=== PATIENT | male | born 1955 | race Caucasian/White ===

== ENCOUNTER 2023-01-04 11:07 | Outpatient (OUT) | payer OTHER, SELFPAY | END 2023-01-04 11:08 | disposition home or self-care (01) | LOC: PST 11:08 | PROVIDERS: PCP Family Medicine; Visit Provider Ophthalmology | DX: Z01.818 Encounter for other preprocedural examination (principal); H25.11 Age-related nuclear cataract, right eye ==

== ENCOUNTER 2023-01-11 07:30 | Day surgery (SDC) | payer OTHER, SELFPAY ==
--- NOTE | 2023-01-11 | OP_ITS ---
OPERATION DATE: ??01/11/2023 SURGEON:? Derek Chester M.D. PREOPERATIVE DIAGNOSIS:? Nuclear sclerotic cataract right eye. POSTOPERATIVE DIAGNOSIS:? Nuclear sclerotic cataract right eye. PROCEDURE NAME:? Cataract extraction with intraocular lens placement for the right eye. ANESTHESIA:? Topical. ESTIMATED BLOOD LOSS:? Zero. COMPLICATIONS:? None. PROCEDURE:? The patient was brought to the Operating Room in supine position.? After proper identification, the right eye was prepped and draped in a sterile ophthalmic fashion.? A paracentesis created at the 11 o'clock position.? Approximately 1 cc of unpreserved Xylocaine was injected into the anterior chamber followed by Amvisc Plus.? Using a 2.6 mm Keratome blade, a clear corneal incision was created at the 9 o'clock limbus.? A cystotome was then used to begin a curvilinear capsulorrhexis that was continued for 360 degrees with the Utrata forceps.? BSS on a 26 gauge cannula was injected beneath the anterior capsule to hydrodissect as well as hydrodelineate the lens.? After ensuring mobility, phacoemulsification was performed in a [id number]-type fashion.? After all nuclear material had been removed from the eye, IA was introduced and all residual cortical material was cleaned up.? Additional Amvisc Plus was injected into the posterior bag and a lens model MX60, 15.0 diopters was injected and dialed into position.? After ensuring centration, IA was reintroduced into the anterior chamber and all residual Amvisc Plus was removed from the eye.? BSS on a 30 gauge cannula was injected into the stroma of both the clear corneal incision as well as paracentesis to hydrate the wounds.? Additional BSS was injected into the anterior chamber to pressurize the eye at approximately 20 to 22 mmHg by finger tension.? 0.1 cc of antibiotic was injected into the anterior chamber and Weck-Lizzeth sponges were used to check the wounds to be watertight.? One drop of apraclonidine and one drop of prednisolone acetate placed into the eye and a shield was placed over top. The patient was sent to the postoperative area in satisfactory condition to follow up the following day for postoperative care. ALYSSA
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
[2023-01-11 07:39] VITALS: BP 125/79; PULSE 68; RESP 16; TEMP 36.4; O2SAT 96
[2023-01-11] MEDS: CYCLOPENTOLATE HCL 1% OP SOL 40 DROP/2 ML BOTTLE OP ×4 (07:43→08:10)
[2023-01-11] MEDS: PHENYLEPHRINE HCL 2.5% OP SOL 40 DROP/2 ML BOTTLE OP ×4 (07:44→08:09)
[2023-01-11] MEDS: TROPICAMIDE 1% OP SOL 300 DROP/15 ML BOTTLE OP ×4 (07:44→08:09)
[2023-01-11] MEDS: BESIFLOXACIN HCL 100 DROP DROPS.SUSP OP ×4 (07:45→08:10)
[2023-01-11] MEDS: DIAZEPAM 5 MG TABLET PO (07:49)
[2023-01-11] MEDS: PROPARACAINE HCL 0.5% 300 DROP/15 ML BOTTLE EYE-RIGHT (09:10)
[2023-01-11] MEDS: LIDOCAINE 2% JELLY 10 ML UR (09:10)
[2023-01-11] MEDS: BETADINE POVIDONE-IODINE 5% OP SOL 30 ML BOTTLE OP (09:10)
[2023-01-11] MEDS: HYALURONATE SODIUM 16 MG/ML SYRINGE EYE-RIGHT (09:20)
[2023-01-11] MEDS: TETRACAINE HCL 0.5% OP SOL 80 DROP/4 ML BOTTLE OP (09:20)
[2023-01-11] MEDS: LIDOCAINE HCL 1% PF 20 MG/2 ML VIAL 1 ML INJ (09:20)
[2023-01-11 09:23] VITALS: BP 123/81; PULSE 51; RESP 18; O2SAT 97
[2023-01-11] MEDS: PHENYLEPHRINE/KETOROLAC 1-0.3% ML VIAL 4 ML IRR (09:24)
[2023-01-11] MEDS: CEFUROXIME SODIUM 750 MG, 0.9 % SODIUM CHLORIDE 16.3 ML OP (09:34)
[2023-01-11 09:36] VITALS: BP 129/78; PULSE 46; RESP 16; O2SAT 99
[2023-01-11] MEDS: PREDNISOLONE ACETATE OP 1% SUSP 100 DROPS/5 ML 1 DROP OP (09:36)
[2023-01-11] MEDS: APRACLONIDINE HCL 100 DROP/5 ML BOTTLE OP (09:36)
== END 2023-01-11 09:44 | disposition home or self-care (01) ==
PROVIDERS: PCP Family Medicine; Visit Provider Ophthalmology
PROC: (CPT 66984; principal; 2023-01-11 09:00)
DX: H25.11 Age-related nuclear cataract, right eye (principal); I10 Essential (primary) hypertension; F17.210 Nicotine dependence, cigarettes, uncomplicated; Z79.899 Other long term (current) drug therapy
CPT/HCPCS: 66984; V2630

== ENCOUNTER 2023-09-14 08:11 | Outpatient (OUT) | payer MEDICARE, OTHER, SELFPAY ==
[2023-09-14 08:48] LABS: Basophils Absolute Auto 0.1 10^3/uL (0.0-0.1); Basophils Percent Auto 1.2 % (0.2-2.0); Eosinophils Absolute Auto 0.3 10^3/uL (0.0-0.7); Eosinophils Percent Auto 5.5 % (0.9-7.0); Hematocrit 44.3 % (42.0-54.0); Immature Granulocytes Abs Auto 0.06 10^3/uL (0.00-0.03); Immature Granulocytes Pct Auto 1.2 % (0.0-0.5); Lymphocytes Absolute Auto 0.9 10^3/uL (1.2-3.8); Lymphocytes Percent Auto 17.5 % (20.5-60.0); Mean Corpuscular HGB Conc 33.9 g/dL (29.9-35.2); Mean Corpuscular Hemoglobin 28.4 pg (25.9-34.0); Mean Corpuscular Volume 83.9 fL (80.0-94.0); Mean Platelet Volume 10.4 fL (9.5-13.5); Monocytes Absolute Auto 0.5 10^3/uL (0.3-0.8); Monocytes Percent Auto 9.1 % (1.7-12.0); Neutrophils Absolute Auto 3.2 10^3/uL (1.4-6.5); Neutrophils Percent Auto 65.5 % (43.0-75.0); Platelet Count 201 10^3/uL (150-450); Red Blood Count 5.28 10^6/uL (4.70-6.10); Red Cell Distribution Width 12.8 % (11.0-15.0); White Blood Count 4.9 10^3/uL (4.0-11.0)
[2023-09-14 08:54] LABS: Estimated Average Glucose 212 mg/dL
[2023-09-14 09:30] LABS: Alanine Aminotransferase 34 U/L (16-63); Albumin Globulin Ratio 1.2; Albumin Level 3.8 g/dL (3.4-5.0); Alkaline Phosphatase 90 U/L (46-116); Anion Gap 12.8; Aspartate Amino Transferase 14 U/L (15-37); BUN Creatinine Ratio 17.3; Bilirubin Total 0.7 mg/dL (0.2-1.0); Calcium 9.2 mg/dL (8.5-10.1); Carbon Dioxide 24.2 mmol/L (21.0-32.0); Chloride 105 mmol/L (98-107); Cholesterol 167 mg/dL (<=200); Estimated GFR (African America >60 (>=60); Estimated GFR (Non-African Ame >60 (>=60); Free T3 2.52 pg/mL (2.18-3.98); Globulin 3.1 g/dL; Glucose 204 mg/dL (74-106); HDL Cholesterol 42 mg/dL (40-60); LDL Cholesterol Calculated 105.8 mg/dL; Sodium 138 mmol/L (136-145); Thyroid Stimulating Hormone 2.162 uIU/mL (0.358-3.740); Total Protein 6.9 g/dL (6.4-8.2); Triglycerides 96 mg/dL (<=150); VLDL CHOLESTEROL 19.2 mg/dL
== END 2023-09-14 08:12 | disposition home or self-care (01) ==
PROVIDERS: PCP Family Medicine; Visit Provider Family Medicine
DX: R73.09 Other abnormal glucose (principal); I10 Essential (primary) hypertension; K21.9 Gastro-esophageal reflux disease without esophagitis; R53.83 Other fatigue
CPT/HCPCS: 36415; 80053; 80061; 83036; 84436; 84443; 84481; 85025

== ENCOUNTER 2023-10-30 11:08 | Outpatient (OUT) | payer MEDICARE, OTHER, SELFPAY ==
--- OUTSIDE RECORDS SUMMARY | 2023-10-31 11:09 | XMS_ITS | CCD ---
Author Organization [facility] Care Team Providers Care Coverstitch Binder Name Role Phone Dolly Crawford Unavailable DR JOSE ONEAL Primary Care Unavailable RAFFY, DR CHAVEZ Admitting Unavailable Zilauro, DR Baker Consulting Unavailable RAFFY, DR CHAVEZ Attending Unavailable RAFFY, DR CHAVEZ Consulting Unavailable ANDREA, DR GARCIA Primary Care Unavailable ANDREA, DR GARCIA Admitting Unavailable ANDREA, DR GARCIA Attending Unavailable ANDREA, DR GARCIA Consulting Unavailable ANDREA, DR GARCIA Admitting Unavailable ANDREA, DR GARCIA Attending Unavailable ANDREA, DR GARCIA Consulting Unavailable ANDREA, DR GARCIA Primary Care Unavailable Roel PECK Attending Unavailable Jose Oneal Referring Unavailable Medications Current Medications Medication Drug Class(es) Dates Sig (Normalized) Sig (Original) amLODIPine Besy-Benazepril HCl (1 source) Crutches Underarm Crutches (1 source) Start: 03-22-2021 Problems Active Problems Problem Classification Problem Date Documented Date Episodic/Chronic Diabetes mellitus without complication (4 sources) Type 2 diabetes mellitus without complications; Translations: [TYPE 2 DM WITHOUT COMPLICATIONS] Onset: 2 Chronic Disorders of lipid metabolism (1 source) Pure hypercholesterolemia, unspecified; Translations: [PURE HYPERCHOLESTEROLEMIA UNSPEC] Onset: 2 Chronic Esophageal disorders (1 source) Gastro-esophageal reflux disease without esophagitis; Translations: [GERD WITHOUT ESOPHAGITIS] Onset: 2 Chronic Essential hypertension (1 source) Essential (primary) hypertension; Translations: [ESSENTIAL PRIMARY HYPERTENSION] Onset: 2 Chronic Joint disorders and dislocations; trauma-related (4 sources) Unspecified internal derangement of left knee; Translations: [UNS INTERNAL DERANGEMENT LEFT KNEE] Onset: 2 Chronic Other upper respiratory infections (1 source) Acute sinusitis, unspecified; Translations: [ACUTE SINUSITIS UNSPECIFIED] Onset: 2 Episodic Unclassified (3 sources) CONTACT W/AND (SUSP) EXPOS COVID-19; Translations: [CONTACT W/AND (SUSP) EXPOS COVID-19] Onset: 2 Past or Other Problems Problem Classification Problem Date Documented Da te Episodic/Chronic Diabetes mellitus without complication (1 source) Other abnormal glucose; Translations: [OTHER ABNORMAL GLUCOSE] Onset: 06-07-2021 Episodic Joint disorders and dislocations; trauma-related (1 source) Other tear of medial meniscus, current injury, left knee, initial encounter; Translations: [OTH TEAR MED MENSC CUR LT KNEE INIT] Onset: 07-21-2021 Episodic Other bone disease and musculoskeletal deformities (1 source) Chondromalacia, left knee; Translations: [CHONDROMALACIA LEFT KNEE] Onset: 07-21-2021 Episodic Other connective tissue disease (1 source) Synovial cyst of popliteal space [Dawson], left knee; Translations: [SYNOVIAL CYST POP SPACE LEFT KNEE] Onset: 07-21-2021 Episodic Other non-traumatic joint disorders (1 source) Pain in left knee Onset: 03-22-2021 Resolved: 03-22-2021 Episodic Other non-traumatic joint disorders (2 sources) Effusion, left knee; Translations: [EFFUSION LEFT KNEE] Onset: 03-22-2021 Resolved: 03-22-2021 Episodic Other screening for suspected conditions (not mental disorders or infectious disease) (1 source) Encounter for screening for malignant neoplasm of prostate; Translations: [ENC SCREEN MALIG NEOPLASM PROSTATE] Onset: 06-07-2021 Episodic Unclassified (1 source) CONTACT W/AND (SUSP) EXPOS COVID-19; Translations: [CONTACT W/AND (SUSP) EXPOS COVID-19] Onset: 11-22-2021 Results Test Name Value Interpretation Reference Range Facility Covid-19 PCR (CVDTB)on 11-01 SARS-CoV-2 (COVID-19) RNA VCIKY+probe Ql (Unsp spec) Not detected Normal NOT DETECTED [facility] Comment on above: Result Comment: This test is not yet approved or cleared by the [place] FDA. When there are no FDA-approved or cleared tests available, and other criteria are met, FDA can make tests available under an emergency access mechanism called an Emergency Use Authorization (EUA). The EUA for this test is supported by the Photographer [employer] of Health and Human Service's (HHS's) declaration that circumstances exist to justify the emergency use of in vitro diagnostics for the detection and/or diagnosis of the virus that causes COVID-19. This EUA will remain in effect (meaning this test can be used) for the duration of the COVID-19 declaration justifying emergency of IVDs, unless it is terminated or revoked by FDA (after which the test may no longer be used). When diagnostic testing is negative, the possibility of a false negative should be considered in the context of a patient's recent exposures and the presence of clinical signs and symptoms consistent with SARS-CoV-2. Performed By: #### U NATALIE, TSH, T7, CMP, LIPID #### [facility] [address] [place] [address] Dr. Ines So MRI KNEE LT WO CONon 07-18- 022 MRI KNEE LT WO CON EXAMINATION: MRI KNEE LT WO CON HISTORY: Derangement of left knee ; chronic medial left knee pain COMPARISON: No relevant comparison available. TECHNIQUE: A complete multi-planar MRI was performed. FINDINGS: MEDIAL COMPARTMENT MEDIAL MENISCUS: Oblique tear extending into the inferior surface of the posterior junction and horn. CARTILAGE: Generalized thinning with focal areas of marked thinning versus complete loss of cartilage. BONES: No marrow pathology, fracture, or significant arthropathy. MCL AND MEDIAL CAPSULE: Grade I sprain of the medial collateral ligament. LATERAL COMPARTMENT LATERAL MENISCUS: No visible tear or significant degeneration. CARTILAGE: Mild thinning without focal defect. BONES: No marrow pathology, fracture, or significant arthropathy. LCL/POSTEROLAT COMPLEX: Normal lateral collateral ligament, fascicles, lateral capsule and ligaments. ANTERIOR COMPARTMENT PATELLA: No marrow pathology, fracture, or significant arthropathy. CARTILAGE: Thinning without focal defect. TENDONS: Normal. EFFUSION: Moderate joint effusion. ACL: Normal appearing ligament. PCL: Normal appearing ligament. MENISCOFEMORAL: Normal meniscofemoral ligaments. OTHER: Dawson's cyst. IMPRESSION: 1. Undersurface tear of the medial meniscus posterior junction and horn. 2. 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 3. Cartilage thinning of the lateral femoral condyle and patella. 4. Moderate joint effusion. 5. Dawson's cyst.. Electronically authenticated by: JANINE GRAYSON Date: 2021-07-18 11:35 Normal [facility] INSULINon 06-08-2021 Insulin 12.3 uIU/mL Normal 2.6-24.9 [facility] Comment on above: Performed By: #### I NSULIN #### [facility] [address] [place] [address] Dr. Ines So CBC AUTO DIFFon 06-06-2021 BASO # 0.1 103/ul Normal 0.0-0.1 [facility] Comment on above: Performed By: #### C BC #### [facility] [address] [place] [address] Dr. Ines So Basophils/100 WBC (Bld) 0.5 % Normal 0.2-2.0 [facility] Comment on above: Performed By: #### C BC #### [facility] [address] [place] [address] Dr. Ines So EO # 0.1 103/ul Normal 0.0-0.7 [facility] Comment on above: Performed By: #### C BC #### [facility] [address] [place] [address] Dr. Ines So Eosinophils/100 WBC (Bld) 0.5 % Critically low 0.9-7.0 [facility] Comment on above: Performed By: #### C BC #### [facility] [address] [place] [address] Dr. Ines So Erythrocyte distribution width (RBC) [Ratio] 13.2 % Normal 11.0-15.0 [facility] Comment on above: Performed By: #### C BC #### [facility] [address] [place] [address] Dr. Ines So Hematocrit (Bld) [Volume fraction] 45.9 % Normal 42.0-54.0 [facility] Comment on above: Performed By: #### C BC #### [facility] [address] [place] [address] Dr. Ines So Hemoglobin (Bld) [Mass/Vol] 14.9 g/dL Normal 14.0-18.0 [facility] Comment on above: Performed By: #### C BC #### [facility] [address] [place] [address] Dr. Ines So IG # 0.08 10e3/ul Critically high 0.00-0.03 [facility] Comment on above: Performed By: #### C BC #### [facility] [address] [place] [address] Dr. Ines So IG % 0.4 % Normal 0.0-0.5 [facility] Comment on above: Performed By: #### C BC #### [facility] [address] [place] [address] Dr. Ines So LYMPH # 0.9 103/ul Critically low 1.2-3.8 [facility] Comment on above: Performed By: #### C BC #### [facility] [address] [place] [address] Dr. Ines So Lymphocytes/100 WBC (Bld) 4.7 % Critically low 20.5-60.0 [facility] Comment on above: Performed By: #### C BC #### [facility] [address] [place] [address] Dr. Ines So MANUAL DIFF REQ NO Normal [facility] Comment on above: Performed By: #### C BC #### [facility] [address] [place] [address] Dr. Ines So MCH (RBC) [Entitic mass] 28.8 pg Normal 25.9-34.0 [facility] Comment on above: Performed By: #### C BC #### [facility] [address] [place] [address] Dr. Ines So MCHC (RBC) [Mass/Vol] 32.5 g/dL Normal 29.9-35.2 [facility] Comment on above: Performed By: #### C BC #### [facility] [address] [place] [address] Dr. Ines So MCV (RBC) [Entitic vol] 88.6 fL Normal 80.0-94.0 [facility] Comment on above: Performed By: #### C BC #### [facility] [address] [address] [address] Ines So MONO # 0.9 103/ul Critically high 0.3-0.8 [facility] Comment on above: Performed By: #### C BC #### [facility] [address] [address] [address] Ines So Monocytes/100 WBC (Bld) 4.9 % Normal 1.7-12.0 [facility] Comment on above: Performed By: #### C BC #### [facility] [address] [place] [address] Dr. Ines So NEUT # 16.2 103/ul Critically high 1.4-6.5 [facility] Comment on above: Performed By: #### C BC #### [facility] [address] [place] [address] Dr. Ines So Neutrophils/100 WBC (Bld) 89.0 % Critically high 43.0-75.0 [facility] Comment on above: Performed By: #### C BC #### [facility] [address] [place] [address] Dr. Ines So Platelet mean volume (Bld) [Entitic vol] 10.6 fL Normal 9.5-13.5 [facility] Comment on above: Performed By: #### C BC #### [facility] [address] [place] [address] Dr. Ines So PLT 202 103/ul Normal 150-450 [facility] Comment on above: Performed By: #### C BC #### [facility] [address] [place] [address] Dr. Ines So RBC 5.18 106/ul Normal 4.70-6.10 [facility] Comment on above: Performed By: #### C BC #### [facility] [address] [place] [address] Dr. Ines So WBC 18.2 103/ul Critically high 4.0-11.0 [facility] Comment on above: Performed By: #### C BC #### [facility] [address] [address] [address] Ines So FREE THYROXINE INDEX T7on FTI 2.75 Normal [facility] Comment on above: Performed By: #### U NATALIE, TSH, T7, CMP, LIPID #### [facility] [address] [address] [address] Ines So T3U 34.0 % Normal 23.5-40.5 [facility] Comment on above: Performed By: #### U NATALIE, TSH, T7, CMP, LIPID #### [facility] [address] [address] [address] Ines So T4 [Mass/Vol] 8.10 ug/dL Normal 5.53-11.00 [facility] Comment on above: Performed By: #### U NATALIE, TSH, T7, CMP, LIPID #### [facility] [address] [address] [address] Ines So GLYCOHEMOGLOBIN A1Con 2021 ADA RECOMMENDATION ADA THERAPEUTIC TARGET 6.0 - 7.0 ACTION SUGGESTED > 7.0 Normal [facility] Comment on above: Performed By: #### A 1C #### [facility] [address] [address] [address] Ines So Glucose [Mass/Vol] 137 mg/dL Normal [facility] Comment on above: Performed By: #### A 1C #### [facility] [address] [address] [address] Ines So HbA1c (Bld) [Mass fraction] 6.4 % Critically high <=6.0 [facility] Comment on above: Performed By: #### A 1C #### [facility] [address] [place] [address] Dr. Ines So LIPID PROFILEon 06-06-2021 CHOL-HDL RATIO NORM SEE BELOW Normal [facility] Comment on above: Result Comment: 3.3 - 4.4 LOW RISK 4.4 - 7.1 AVERAGE RISK 7.1 - 11.0 MODERATE RISK >11.0 HIGH RISK Performed By: #### U NATALIE, TSH, T7, CMP, LIPID #### [facility] [address] [address] [address] Ines So Cholesterol [Mass/Vol] 191 mg/dL Normal <=200 [facility] Comment on above: Performed By: #### U NATALIE, TSH, T7, CMP, LIPID #### [facility] [address] [address] [address] Ines So Cholesterol in HDL [Mass/Vol] 56 mg/dL Normal [facility] Comment on above: Performed By: #### U NATALIE, TSH, T7, CMP, LIPID #### [facility] [address] [address] [address] Ines So Cholesterol in LDL [Mass/Vol] 116.2 mg/dL Normal [facility] Comment on above: Performed By: #### U NATALIE, TSH, T7, CMP, LIPID #### [facility] [address] [address] [address] Ines So Cholesterol.total/Ch olesterol in HDL [Mass ratio] 3.4 {ratio} Normal [facility] Comment on above: Performed By: #### U NATALIE, TSH, T7, CMP, LIPID #### [facility] [address] [address] [address] Ines So HDL NORMAL > or = 60 mg/dl - LOW CARDIOVASCULAR RISK <40 mg/dl - HIGH CARDIOVASCULAR RISK Normal [facility] Comment on above: Performed By: #### U NATALIE, TSH, T7, CMP, LIPID #### [facility] [address] [address] [address] Ines So LDL CALC NORMAL SEE BELOW Normal [facility] Comment on above: Result Comment: <100 mg/dl OPTIMAL 100 - 129 mg/dl NEAR OR ABOVE OPTIMAL 130 - 159 mg/dl BORDERLINE HIGH 160 - 189 mg/dl HIGH >190 mg/dl VERY HIGH Performed By: #### U NATALIE, TSH, T7, CMP, LIPID #### [facility] [address] [address] [address] Ines So Triglyceride [Mass/Vol] 94 mg/dL Normal <=150 [facility] Comment on above: Performed By: #### U NATALIE, TSH, T7, CMP, LIPID #### [facility] [address] [address] [address] Ines So VLDL CALC 18.8 mg/dL Normal [facility] Comment on above: Performed By: #### U NATALIE, TSH, T7, CMP, LIPID #### [facility] [address] [address] [address] Ines So PROF 14(COMP METB)on 022 Albumin [Mass/Vol] 3.8 g/dL Normal 3.5-5.0 [facility] Comment on above: Performed By: #### U NATALIE, TSH, T7, CMP, LIPID #### [facility] [address] [place] [address] Dr. Ines So Albumin/Globulin [Mass ratio] 1.2 {ratio} Normal [facility] Comment on above: Performed By: #### U NATALIE, TSH, T7, CMP, LIPID #### [facility] [address] [place] [address] Dr. Ines So ALP [Catalytic activity/Vol] 80 U/L Normal 38-126 [facility] Comment on above: Performed By: #### U NATALIE, TSH, T7, CMP, LIPID #### [facility] [address] [place] [address] Dr. Ines So ALT [Catalytic activity/Vol] 27 U/L Normal 21-72 [facility] Comment on above: Performed By: #### U NATALIE, TSH, T7, CMP, LIPID #### [facility] [address] [place] [address] Dr. Ines So Anion gap [Moles/Vol] 9.6 mmol/L Normal [facility] Comment on above: Performed By: #### U NATALIE, TSH, T7, CMP, LIPID #### [facility] [address] [place] [address] Dr. Ines So AST [Catalytic activity/Vol] 14 U/L Critically low 17-59 [facility] Comment on above: Performed By: #### U NATALIE, TSH, T7, CMP, LIPID #### [facility] [address] [place] [address] Dr. Ines So Bilirubin [Mass/Vol] 1.2 mg/dL Normal 0.2-1.3 [facility] Comment on above: Performed By: #### U NATALIE, TSH, T7, CMP, LIPID #### [facility] [address] [place] [address] Dr. Ines So Calcium [Mass/Vol] 9.0 mg/dL Normal 8.4-10.2 [facility] Comment on above: Performed By: #### U NATALIE, TSH, T7, CMP, LIPID #### [facility] [address] [place] [address] Dr. Ines So Chloride [Moles/Vol] 105 mmol/L Normal 98-107 [facility] Comment on above: Performed By: #### U NATALIE, TSH, T7, CMP, LIPID #### [facility] [address] [place] [address] Dr. Ines So CO2 [Moles/Vol] 27.4 mmol/L Normal 22.0-30.0 [facility] Comment on above: Performed By: #### U NATALIE, TSH, T7, CMP, LIPID #### [facility] [address] [place] [address] Dr. Ines So Creatinine [Mass/Vol] 1.07 mg/dL Normal 0.66-1.25 [facility] Comment on above: Performed By: #### U NATALIE, TSH, T7, CMP, LIPID #### [facility] [address] [place] [address] Dr. Ines So EGFR-AF CITIZEN [place] >60 Normal >=60 [facility] Comment on above: Performed By: #### U NATALIE, TSH, T7, CMP, LIPID #### [facility] [address] [place] [address] Dr. Ines So EGFR-NON AF CITIZEN [place] >60 Normal >=60 [facility] Comment on above: Performed By: #### U NATALIE, TSH, T7, CMP, LIPID #### [facility] [address] [place] [address] Dr. Ines So Globulin (S) [Mass/Vol] 3.3 g/dL Normal [facility] Comment on above: Performed By: #### U NATALIE, TSH, T7, CMP, LIPID #### [facility] [address] [address] [address] nIes So Glucose [Mass/Vol] 136 mg/dL Critically high 74-106 T [facility] Comment on above: Performed By: #### U NATALIE, TSH, T7, CMP, LIPID #### [facility] [address] [address] [address] Ines So Potassium [Moles/Vol] 4.0 mmol/L Normal 3.4-5.0 [facility] Comment on above: Performed By: #### U NATALIE, TSH, T7, CMP, LIPID #### [facility] [address] [address] [address] Ines So Protein [Mass/Vol] 7.1 g/dL Normal 6.1-8.2 [facility] Comment on above: Performed By: #### U NATALIE, TSH, T7, CMP, LIPID #### [facility] [address] [address] [address] Ines So Sodium [Moles/Vol] 138 mmol/L Normal 137-145 [facility] Comment on above: Performed By: #### U NATALIE, TSH, T7, CMP, LIPID #### [facility] [address] [address] [address] Ines So Urea nitrogen [Mass/Vol] 18.0 mg/dL Normal 9.0-20.0 [facility] Comment on above: Performed By: #### U NATALIE, TSH, T7, CMP, LIPID #### [facility] [address] [address] [address] Ines So Urea nitrogen/Creatinine [Mass ratio] 16.8 mg/mg Normal [facility] Comment on above: Performed By: #### U NATALIE, TSH, T7, CMP, LIPID #### [facility] [address] [address] [address] Ines So TSHon 06-06-2021 TSH 0.735 uIU/mL Normal 0.470-4.680 [facility] Comment on above: Performed By: #### U NATALIE, TSH, T7, CMP, LIPID #### [facility] [address] [place], [place] [address] Dr. Ines So TSH RANGE SEE BELOW Normal [facility] Comment on above: Result Comment: <0.3 4 UIU/ml HYPERTHYROID 0.34-5.60 UIU/ml EUTHYROID >5.60 UIU/ml HYPOTHYROID Performed By: #### U NATALIE, TSH, T7, CMP, LIPID #### [facility] [address] [place], [place] [address] Dr. Ines So URIC ACID SERUMon 06-06-2021 Urate [Mass/Vol] 5.6 mg/dL Normal 3.5-8.5 [facility] Comment on above: Performed By: #### U NATALIE, TSH, T7, CMP, LIPID #### [facility] [address] [place], [place] [address] Dr. Ines So XR knee LT 4V*on 03-22-2021 XR knee LT 4V* [facility] [address] [place] [address] XRay Report Signed Patient: Castillo Dominguez MR#: [id number] : 1955 Acct:[id number] Age/Sex: 65 / M ADM Date: 03/22/21 Loc: XDUCLY Room: Type: [facility] Attending Dr: Dolly NELSON Ordering Provider: LESLIE Cast Date of Service: 03/22/21 XR/XR knee LT 4V*: Acute pain of left knee Copies to: LESLIE Cast 4 views LEFT knee plain film COMPARISON:None HISTORY:Medial LEFT knee pain. Injury. No fracture, dislocation or focal soft tissue abnormality seen. Small suprapatellar effusion present. XR/XR knee LT 4V* IMPRESSION:No acute findings Impression dictated by: Deandre Ring M.D.03/22/2021 3:02 PM Dictation Location: [place] [address] Transcribed By: XIN 03/22/21 1502 Dictated By: Deandre Ring DO 03/22/21 1500 Signed By: 03/22/21 1502 Normal [facility] XR knee LT 4V* [facility] Other XR knee LT 4V* [facility] [employer] Other XR knee LT 4V* [address] [place] [address] [employer] Other XR knee LT 4V* [place] [address] No rt [employer] Other XR knee LT 4V* XRay Report [id number] Other XR knee LT 4V* Signed [employer] Other XR knee LT 4V* Patient: Castillo Dominguez MR#: [id number] [place] [employer] Other XR knee LT 4V* 1737 [employer] Other XR knee LT 4V* : 1955 Acct:[id number] [employer] Other XR knee LT 4V* Age/Sex: 65 / M ADM Date: 03/22/21 [employer] Other XR knee LT 4V* Loc: XDUCLY Room: Type: [facility] [employer] Other XR knee LT 4V* Attending Dr: Dolly NELSON [employer] Other XR knee LT 4V* Ordering Provider: LESLIE Cast [employer] Other XR knee LT 4V* Date of Service: 03/22/21 [employer] Other XR knee LT 4V* XR/XR knee LT 4V*: Acute pain of left knee [employer] Other XR knee LT 4V* Copies to: Dolly Crawford, OIL REFINER-C [employer] Other XR knee LT 4V* 4 views LEFT knee plain film [employer] Other XR knee LT 4V* COMPARISON:None [employer] Other XR knee LT 4V* HISTORY:Medial LEFT knee pain. Injury. [employer] Other XR knee LT 4V* No fracture, dislocation or focal soft tissue abnormality seen. Small suprapatellar effusion [employer] Other XR knee LT 4V* present. [employer] Other XR knee LT 4V* XR/XR knee LT 4V* [employer] Other XR knee LT 4V* IMPRESSION:No acute findings [employer] Other XR knee LT 4V* Impression dictated by: Deandre Ring M.D.03/22/2021 3:02 PM [employer] Other XR knee LT 4V* Dictation Location: [place] [address] [employer] Other XR knee LT 4V* Transcribed By: [facility] 03/22/21 1502 [employer] Other XR knee LT 4V* Dictated By: Deandre Ring DO 03/22/21 1500 [employer] Other XR knee LT 4V* Signed By: [employer] Other XR knee LT 4V* 03/22/21 1502 [facility] Other Vital Signs Date Time Vital Sign Value Performing Clinician Facility 03-22-2021 14:40-0500 Body height 177.8 cm oDlly Crawford Other [employer] Other 03-22-2021 14:40-0500 Body mass index (BMI) [Ratio] 29.7 kg/m2 Dolly Yvette Other [employer] Other 03-22-2021 14:40-0500 Body temperature 98.2 [degF] Dolly Yvette Other [employer] Other 03-22-2021 14:40-0500 Body weight 93.9 kg Dolly Yvette Other [employer] Other 03-22-2021 14:40-0500 Diastolic blood pressure 77 mm[Hg] Dolly Yvette Other [employer] Other 03-22-2021 14:40-0500 Respiratory rate 16 /min Dolly Yvette Other [employer] Other 03-22-2021 14:40-0500 SaO2% (BldA) [Mass fraction] 99 % Dolly Yvette Other [employer] Other 03-22-2021 14:40-0500 Systolic blood pressure 123 mm[Hg] Dolly Yvette Other [employer] Other Encounters Encounter Date Encounter Type Care Provider Facility Start: 11-20-2023 ambulatory Roel PECK Facility :[facility] Start: 10-22-2023 ambulatory Roel PECK Facility:Shanique Elias Start: 11-22-2021 End: 11-22-[address] JOSE ONEAL Facility:[facility] Start: 07-18-2021 End: 07-19-[address] JOSE ONEAL Facility:[facility] Start: 06-06-2021 End: 06-06-[address] JOSE ONEAL Facility:[facility] Start: 03-22-2021 End: 12-21-2021 ambulatory Dolly Crawford Other [employer] Other Start: 03-22-2021 Office outpatient ne w 20 minutes Dolly Crawford [facility] [place] Procedures Date Procedure Procedure Detail Performing Clinician Start: 06-06-[address] MARINA ONEAL Comment on above: Performed By: #### [facility] #### [facility] [address] [place] [address] Dr. Ines So Payers Date Payer Category Payer Medicare [id number] 2023 Unknown [id number] 2023 Unknown [id number] 1959 Private Health Insurance [id number] 1959 Self-pay 1955 Unknown [id number] 2.16.84 [id number] 1955 Unknown [id number] 2.16.84 [id number] 1955 Unknown [id number] 2.16.84 [id number] 1955 Unknown [id number] 2.16.8 [id number] Social History Date Type Detail Facility Unknown if ever smoked [employer] Other Evaluation note Note Date & Type Note Facility Evaluation note Function Space Other History general Narrative - Reported Note Date & Type Note Facility History general Narrative - Reported [employer] Other Summary Purpose Family History No Family History Records FoundNo Family History Records FoundNo Family History Records Found Advance Directives No Advanced Directives Records FoundNo Advanced Directives Records FoundNo Advanced Directives Records Found Additional Source Comments (unrecognized sect ion and content) No Status Records FoundNo Status Records FoundNo Status Records Found INFORMATION SOURCE (unrecogn ized section and content) DATE CREATED AUTHOR 03/26/2021 [facility] DATE CREATED AUTHOR AUTHOR'S ORGANIZ ATION 11/25/2021 [facility] DATE CREATED AUTHOR AUTHOR'S ORGANIZ ATION 10/24/2023 [facility] FOR RECORDS PERTAINING TO PATIENTS WHO ARE OR HAVE BEEN ENROLLED IN A CHEMICAL DEPENDENCY/SUBSTANCEABUSE PROGRAM, SOME INFORMATION MAY BE OMITTED. This clinical summary was aggregated from multiple sources. Caution should be exercised in using it in the provision of clinical care. This summary normalizes information from multiple sources, and as a consequence, information in this document may materially change the coding, format and clinical context of patient data. In addition, data may be omitted in some cases. CLINICAL DECISIONS SHOULD BE BASED ON THE PRIMARY CLINICAL RECORDS. [employer] provides no warranty or guarantee of the accuracy or completeness of information in this document.
--- OUTSIDE RECORDS SUMMARY | 2023-10-31 11:11 | XMS_ITS | CCD ---
Author Organization [facility] Care Team Providers Care Security Guard Supervisor Name Role Phone Dolly Crawford Unavailable DR [...] Covid-19 PCR (CVDTB)on 11-01 SARS-CoV-2 (COVID-19) RNA VICKY+probe Ql (Unsp spec) Not detected Normal NOT DETECTED [facility] Comment on above: Result Comment: This test is not yet approved or cleared by the [place] FDA. When there are no FDA-approved or cleared tests available, and other criteria are met, FDA can make tests available under an emergency access mechanism called an Emergency Use Authorization (EUA). The EUA for this test is supported by the Cover Machine Operator of Health and Human Service's (HHS's) declaration [...] U NATALIE, TSH, T7, CMP, LIPID #### [facility] [address] [place] [address] Dr. Ines So MRI KNEE LT WO [...] JANINE GRAYSON Date: 2021-07-18 11:35 Normal [facility] INSULINon 06-08-2021 Insulin 12.3 uIU/mL Normal 2.6-24.9 [facility] Comment on above: Performed By: #### I NSULIN #### [facility] [address] [place] [address] Dr. Ines So CBC AUTO DIFFon 06-06-2021 BASO # 0.1 103/ul Normal 0.0-0.1 [facility] Comment on above: Performed By: #### C BC #### [facility] [address] [place] [address] Dr. Ines So Basophils/100 WBC (Bld) 0.5 % Normal 0.2-2.0 [facility] Comment on above: Performed By: #### C BC #### [facility] [address] [place] [address] Dr. Ines So EO # 0.1 103/ul Normal 0.0-0.7 [facility] Comment on above: Performed By: #### C BC #### [facility] [address] [place] [address] Dr. Ines So Eosinophils/100 WBC (Bld) 0.5 % Critically low 0.9-7.0 [facility] Comment on above: Performed By: #### C BC #### [facility] [address] [place] [address] Dr. Ines So Erythrocyte distribution width (RBC) [Ratio] 13.2 % Normal 11.0-15.0 [facility] Comment on above: Performed By: #### C BC #### [facility] [address] [place] [address] Dr. Ines So Hematocrit (Bld) [Volume fraction] 45.9 % Normal 42.0-54.0 [facility] Comment on above: Performed By: #### C BC #### [facility] [address] [place] [address] Dr. Ines So Hemoglobin (Bld) [Mass/Vol] 14.9 g/dL Normal 14.0-18.0 [facility] Comment on above: Performed By: #### C BC #### [facility] [address] [place] [address] Dr. Ines So IG # 0.08 10e3/ul Critically high 0.00-0.03 [facility] Comment on above: Performed By: #### C BC #### [facility] [address] [place] [address] Dr. Ines So IG % 0.4 % Normal 0.0-0.5 [facility] Comment on above: Performed By: #### C BC #### [facility] [address] [place] [address] Dr. Ines So LYMPH # 0.9 103/ul Critically low 1.2-3.8 [facility] Comment on above: Performed By: #### C BC #### [facility] [address] [place] [address] Dr. Ines So Lymphocytes/100 WBC (Bld) 4.7 % Critically low 20.5-60.0 [facility] Comment on above: Performed By: #### C BC #### [facility] [address] [place] [address] Dr. Ines So MANUAL DIFF REQ NO Normal [facility] Comment on above: Performed By: #### C BC #### [facility] [address] [place] [address] Dr. Ines So MCH (RBC) [Entitic mass] 28.8 pg Normal 25.9-34.0 [facility] Comment on above: Performed By: #### C BC #### [facility] [address] [place] [address] Dr. Ines So MCHC (RBC) [Mass/Vol] 32.5 g/dL Normal 29.9-35.2 [facility] Comment on above: Performed By: #### C BC #### [facility] [address] [place] [address] Dr. Ines So MCV (RBC) [Entitic vol] 88.6 fL Normal 80.0-94.0 [facility] Comment on above: Performed By: #### C BC #### [facility] [address] [address] [address] Ines So MONO # 0.9 103/ul Critically high 0.3-0.8 [facility] Comment on above: Performed By: #### C BC #### [facility] [address] [address] [address] Ines So Monocytes/100 WBC (Bld) 4.9 % Normal 1.7-12.0 [facility] Comment on above: Performed By: #### C BC #### [facility] [address] [place] [address] Dr. Ines So NEUT # 16.2 103/ul Critically high 1.4-6.5 [facility] Comment on above: Performed By: #### C BC #### [facility] [address] [place] [address] Dr. Ines So Neutrophils/100 WBC (Bld) 89.0 % Critically high 43.0-75.0 [facility] Comment on above: Performed By: #### C BC #### [facility] [address] [place] [address] Dr. Ines So Platelet mean volume (Bld) [Entitic vol] 10.6 fL Normal 9.5-13.5 [facility] Comment on above: Performed By: #### C BC #### [facility] [address] [place] [address] Dr. Ines So PLT 202 103/ul Normal 150-450 [facility] Comment on above: Performed By: #### C BC #### [facility] [address] [place] [address] Dr. Ines So RBC 5.18 106/ul Normal 4.70-6.10 [facility] Comment on above: Performed By: #### C BC #### [facility] [address] [place] [address] Dr. Ines So WBC 18.2 103/ul Critically high 4.0-11.0 [facility] Comment on above: Performed By: #### C BC #### [facility] [address] [address] [address] Ines So FREE THYROXINE INDEX T7on FTI 2.75 Normal [facility] Comment on above: Performed By: #### U NATALIE, TSH, T7, CMP, LIPID #### [facility] [address] [address] [address] Ines So T3U 34.0 % Normal 23.5-40.5 [facility] Comment on above: Performed By: #### U NATALIE, TSH, T7, CMP, LIPID #### [facility] [address] [address] [address] Ines So T4 [Mass/Vol] 8.10 ug/dL Normal 5.53-11.00 [facility] Comment on above: Performed By: #### U NATALIE, TSH, T7, CMP, LIPID #### [facility] [address] [address] [address] Ines So GLYCOHEMOGLOBIN A1Con 2021 ADA RECOMMENDATION ADA THERAPEUTIC TARGET 6.0 - 7.0 ACTION SUGGESTED > 7.0 Normal [facility] Comment on above: Performed By: #### A 1C #### [facility] [address] [address] [address] Ines So Glucose [Mass/Vol] 137 mg/dL Normal [facility] Comment on above: Performed By: #### A 1C #### [facility] [address] [address] [address] Ines So HbA1c (Bld) [Mass fraction] 6.4 % Critically high <=6.0 [facility] Comment on above: Performed By: #### A 1C #### [facility] [address] [place] [address] Dr. Ines So LIPID PROFILEon 06-06-2021 CHOL-HDL RATIO NORM SEE BELOW Normal [facility] Comment on above: Result Comment: 3.3 - 4.4 LOW RISK 4.4 - 7.1 AVERAGE RISK 7.1 - 11.0 MODERATE RISK >11.0 HIGH RISK Performed By: #### U NATALIE, TSH, T7, CMP, LIPID #### [facility] [address] [address] [address] Ines So Cholesterol [Mass/Vol] 191 mg/dL Normal <=200 [facility] Comment on above: Performed By: #### U NATALIE, TSH, T7, CMP, LIPID #### [facility] [address] [address] [address] Ines So Cholesterol in HDL [Mass/Vol] 56 mg/dL Normal [facility] Comment on above: Performed By: #### U NATALIE, TSH, T7, CMP, LIPID #### [facility] [address] [address] [address] Ines So Cholesterol in LDL [Mass/Vol] 116.2 mg/dL Normal [facility] Comment on above: Performed By: #### U NATALIE, TSH, T7, CMP, LIPID #### [facility] [address] [address] [address] Ines So Cholesterol.total/Ch olesterol in HDL [Mass ratio] 3.4 {ratio} Normal [facility] Comment on above: Performed By: #### U NATALIE, TSH, T7, CMP, LIPID #### [facility] [address] [address] [address] Ines So HDL NORMAL > or = 60 mg/dl - LOW CARDIOVASCULAR RISK <40 mg/dl - HIGH CARDIOVASCULAR RISK Normal [facility] Comment on above: Performed By: #### U NATALIE, TSH, T7, CMP, LIPID #### [facility] [address] [address] [address] Ines So LDL CALC NORMAL SEE BELOW Normal [facility] Comment on above: Result Comment: <100 mg/dl OPTIMAL 100 - 129 mg/dl NEAR OR ABOVE OPTIMAL 130 - 159 mg/dl BORDERLINE HIGH 160 - 189 mg/dl HIGH >190 mg/dl VERY HIGH Performed By: #### U NATALIE, TSH, T7, CMP, LIPID #### [facility] [address] [address] [address] Ines So Triglyceride [Mass/Vol] 94 mg/dL Normal <=150 [facility] Comment on above: Performed By: #### U NATALIE, TSH, T7, CMP, LIPID #### [facility] [address] [address] [address] Ines So VLDL CALC 18.8 mg/dL Normal [facility] Comment on above: Performed By: #### U NATALIE, TSH, T7, CMP, LIPID #### [facility] [address] [address] [address] Ines So PROF 14(COMP METB)on 022 Albumin [Mass/Vol] 3.8 g/dL Normal 3.5-5.0 [facility] Comment on above: Performed By: #### U NATALIE, TSH, T7, CMP, LIPID #### [facility] [address] [place] [address] Dr. Ines So Albumin/Globulin [Mass ratio] 1.2 {ratio} Normal [facility] Comment on above: Performed By: #### U NATALIE, TSH, T7, CMP, LIPID #### [facility] [address] [place] [address] Dr. Ines So ALP [Catalytic activity/Vol] 80 U/L Normal 38-126 [facility] Comment on above: Performed By: #### U NATALIE, TSH, T7, CMP, LIPID #### [facility] [address] [place] [address] Dr. Ines So ALT [Catalytic activity/Vol] 27 U/L Normal 21-72 [facility] Comment on above: Performed By: #### U NATALIE, TSH, T7, CMP, LIPID #### [facility] [address] [place] [address] Dr. Ines So Anion gap [Moles/Vol] 9.6 mmol/L Normal [facility] Comment on above: Performed By: #### U NATALIE, TSH, T7, CMP, LIPID #### [facility] [address] [place] [address] Dr. Iens So AST [Catalytic activity/Vol] 14 U/L Critically low 17-59 [facility] Comment on above: Performed By: #### U NATALIE, TSH, T7, CMP, LIPID #### [facility] [address] [place] [address] Dr. Ines So Bilirubin [Mass/Vol] 1.2 mg/dL Normal 0.2-1.3 [facility] Comment on above: Performed By: #### U NATALIE, TSH, T7, CMP, LIPID #### [facility] [address] [place] [address] Dr. Ines So Calcium [Mass/Vol] 9.0 mg/dL Normal 8.4-10.2 [facility] Comment on above: Performed By: #### U NATALIE, TSH, T7, CMP, LIPID #### [facility] [address] [place] [address] Dr. Ines So Chloride [Moles/Vol] 105 mmol/L Normal 98-107 [facility] Comment on above: Performed By: #### U NATALIE, TSH, T7, CMP, LIPID #### [facility] [address] [place] [address] Dr. Ines So CO2 [Moles/Vol] 27.4 mmol/L Normal 22.0-30.0 [facility] Comment on above: Performed By: #### U NATALIE, TSH, T7, CMP, LIPID #### [facility] [address] [place] [address] Dr. Ines So Creatinine [Mass/Vol] 1.07 mg/dL Normal 0.66-1.25 [facility] Comment on above: Performed By: #### U NATALIE, TSH, T7, CMP, LIPID #### [facility] [address] [place] [address] Dr. Ines So EGFR-AF ZIMBABWEAN >60 Normal >=60 [facility] Comment on above: Performed By: #### U NATALIE, TSH, T7, CMP, LIPID #### [facility] [address] [place] [address] Dr. Ines So EGFR-NON AF ZIMBABWEAN >60 Normal >=60 [facility] Comment on above: Performed By: #### U NATALIE, TSH, T7, CMP, LIPID #### [facility] [address] [place] [address] Dr. Ines So Globulin (S) [Mass/Vol] 3.3 g/dL Normal [facility] Comment on above: Performed By: #### U NATALIE, TSH, T7, CMP, LIPID #### [facility] [address] [address] [address] Ines So Glucose [Mass/Vol] 136 mg/dL Critically high 74-106 T [facility] Comment on above: Performed By: #### U NATALIE, TSH, T7, CMP, LIPID #### [facility] [address] [address] [address] Ines So Potassium [Moles/Vol] 4.0 mmol/L Normal 3.4-5.0 [facility] Comment on above: Performed By: #### U NATALIE, TSH, T7, CMP, LIPID #### [facility] [address] [address] [address] Ines So Protein [Mass/Vol] 7.1 g/dL Normal 6.1-8.2 [facility] Comment on above: Performed By: #### U NATALIE, TSH, T7, CMP, LIPID #### [facility] [address] [address] [address] Ines So Sodium [Moles/Vol] 138 mmol/L Normal 137-145 [facility] Comment on above: Performed By: #### U NATALIE, TSH, T7, CMP, LIPID #### [facility] [address] [address] [address] Ines So Urea nitrogen [Mass/Vol] 18.0 mg/dL Normal 9.0-20.0 [facility] Comment on above: Performed By: #### U NATALIE, TSH, T7, CMP, LIPID #### [facility] [address] [address] [address] Ines So Urea nitrogen/Creatinine [Mass ratio] 16.8 mg/mg Normal [facility] Comment on above: Performed By: #### U NATALIE, TSH, T7, CMP, LIPID #### [facility] [address] [address] [address] Ines So TSHon 06-06-2021 TSH 0.735 uIU/mL Normal 0.470-4.680 [facility] Comment on above: Performed By: #### U NATALIE, TSH, T7, CMP, LIPID #### [facility] [address] [place], [place] [address] Dr. Ines So TSH RANGE SEE BELOW Normal [facility] Comment on above: Result Comment: <0.3 4 UIU/ml HYPERTHYROID 0.34-5.60 UIU/ml EUTHYROID >5.60 UIU/ml HYPOTHYROID Performed By: #### U NATALIE, TSH, T7, CMP, LIPID #### [facility] [address] [place], [place] [address] Dr[address] Ines So URIC ACID SERUMon 06-06-2021 Urate [Mass/Vol] 5.6 mg/dL Normal 3.5-8.5 [facility] Comment on above: Performed By: #### U NATALIE, TSH, T7, CMP, LIPID #### [facility] [address] [place], [place] [address] Dr. Ines So XR knee LT 4V*on 03-22-2021 XR knee LT 4V* [facility] Main [place] [address] [place] [address] XRay Report Signed Patient: Castillo Dominguez MR#: [id number] : 1955 Acct:[id number] Age/Sex: 65 / M ADM Date: 03/22/21 Loc: XDUCLY Room: Type: [facility] Attending Dr: Dolly NELSON Ordering Provider: LESLIE [...] Deandre Ring M.D.03/22/2021 3:02 PM Dictation Location: [place] [address] Transcribed By: XIN 03/22/21 1502 Dictated By: Deandre Ring DO 03/22/21 1500 Signed By: 03/22/21 1502 Normal [facility] XR knee LT 4V* [facility] [employer] Other XR knee LT 4V* [facility] Main [facility] [employer] Other XR knee LT 4V* [address] [place] [address] [employer] Other XR knee LT 4V* [place] [address] No rt [employer] Other XR knee LT 4V* XRay Report [employer] Other XR knee LT 4V* Signed [employer] Other XR knee LT 4V* Patient: Castillo Dominguez MR#: [id number] [place] [employer] Other XR knee LT 4V* 1737 [employer] Other XR knee LT 4V* : 1955 Acct:[id number] [employer] Other XR knee LT 4V* Age/Sex: 65 / M ADM Date: 03/22/21 [employer] Other XR knee LT 4V* Loc: XDUCLY Room: Type: [facility] [employer] Other XR knee LT 4V* Attending Dr: Dolly NELSON [employer] Other XR knee LT 4V* Ordering Provider: LESLIE Cast [employer] Other XR knee LT 4V* Date of Service: 03/22/21 [employer] Other XR knee LT 4V* XR/XR knee LT 4V*: Acute pain of left knee [employer] Other XR knee LT 4V* Copies to: Dolly Crawford, DRY CURE WORKER-C [employer] Other XR knee LT 4V* 4 views LEFT knee plain film [employer] Other XR knee LT 4V* COMPARISON:None [employer] Other XR knee LT 4V* HISTORY:Medial LEFT knee pain. Injury. [employer] Other XR knee LT 4V* No fracture, dislocation or focal soft tissue abnormality seen. Small suprapatellar effusion [employer] Other XR knee LT 4V* present. [employer] Other XR knee LT 4V* XR/XR knee LT 4V* [employer] Other XR knee LT 4V* IMPRESSION:No acute findings [employer] Other XR knee LT 4V* Impression dictated by: Deandre Ring M.D.03/22/2021 3:02 PM [employer] Other XR knee LT 4V* Dictation Location: [place] [address] [employer] Other XR knee LT 4V* Transcribed By: [facility] 03/22/21 1502 [employer] Other XR knee LT 4V* Dictated By: Deandre Ring DO 03/22/21 1500 [employer] Other XR knee LT 4V* Signed By: [employer] Other XR knee LT 4V* 03/22/21 1502 [employer] Other Vital Signs Date Time Vital Sign Value Performing Clinician Facility 03-22-2021 14:40-0500 Body height 177.8 cm Dolly Crawford Other [employer] Other 03-22-2021 14:40-0500 Body mass index (BMI) [Ratio] 29.7 kg/m2 Dolly Yvette Other [employer] Other 03-22-2021 14:40-0500 Body temperature 98.2 [degF] Dolly Yvette Other [employer] Other 03-22-2021 14:40-0500 Body weight 93.9 kg Dolly Yvette Other [employer] Other 03-22-2021 14:40-0500 Diastolic blood pressure 77 mm[Hg] Dolly Yvette Other [employer] Other 03-22-2021 14:40-0500 Respiratory rate 16 /min Dolly Yvette Other [employer] Other 03-22-2021 14:40-0500 SaO2% (BldA) [Mass fraction] 99 % Dolly Yvette Other [employer] Other 03-22-2021 14:40-0500 Systolic blood pressure 123 mm[Hg] Dolly Yvette Other [employer] Other Encounters Encounter Date Encounter Type Care Provider Facility Start: 11-20-2023 ambulatory Roel PECK Facility :N[facility]OLAS Elias Start: 10-22-2023 ambulatory Roel PECK Facility:Shanique Elias Start: 11-22-2021 End: 11-22-[address] JSOE ONEAL Facility:[facility] Start: 07-18-2021 End: 07-19-[address] JOSE ONEAL Facility:[facility] Start: 06-06-2021 End: 06-06-[address] JOSE ONEAL Facility:[facility] Start: 03-22-2021 End: 12-21-2021 ambulatory Dolly Crawford Other [employer] Other Start: 03-22-2021 Office outpatient ne w 20 minutes Dolly Crawford [facility] [place] Procedures Date Procedure Procedure Detail Performing Clinician Start: 06-06-[address] MARINA ONEAL Comment on above: Performed By: #### P [facility] #### [facility] [address] [place] [address] Dr. Ines So Payers Date Payer Category Payer Medicare [id number] 2023 Unknown [id number] 2023 Unknown [id number] 1959 Private Health Insurance [id number] 1959 Self-pay 1955 Unknown [id number] 2.16.84 [id number] 1955 Unknown [id number] 2.16.84 [id number] 1955 Unknown [id number] 2.16.84 [id number] 1955 Unknown [id number] 2.16.8 [id number] Social History Date Type Detail Facility Unknown if ever smoked [employer] Other Evaluation note Note Date & Type Note Facility Evaluation note [employer] Other History general Narrative - Reported Note Date & Type Note Facility History general Narrative - Reported [employer] Other Summary Purpose Family History No Family History Records FoundNo Family History Records FoundNo Family History Records Found Advance Directives No Advanced Directives Records FoundNo Advanced Directives Records FoundNo Advanced Directives Records Found Additional Source Comments (unrecognized sect ion and content) No Status Records FoundNo Status Records FoundNo Status Records Found INFORMATION SOURCE (unrecogn ized section and content) DATE CREATED AUTHOR 03/26/2021 [facility] DATE CREATED AUTHOR AUTHOR'S ORGANIZ ATION 11/25/[address] [facility] DATE CREATED AUTHOR AUTHOR'S ORGANIZ ATION 10/24/2023 [facility] FOR RECORDS PERTAINING TO PATIENTS WHO ARE [...] BE BASED ON THE PRIMARY CLINICAL RECORDS. [employer] provides no warranty or guarantee of the accuracy or completeness of information in this document.
== END 2023-10-31 11:03 | disposition home or self-care (01) ==
PROVIDERS: PCP Family Medicine
DX: E11.9 Type 2 diabetes mellitus without complications (principal)
CPT/HCPCS: G0108

== ENCOUNTER 2023-12-04 12:30 | Outpatient (OUT) | payer MEDICARE, OTHER, SELFPAY ==
--- OUTSIDE RECORDS SUMMARY | 2023-12-04 12:55 | XMS_ITS | CCD ---
Author Organization [facility] Inform ion Partnership [facility] Care Team Providers Care Reconsignment Clerk Name Role Phone Dolly Crawford Unavailable DR JOSE ONEAL Primary Care Unavailable RAFFY, DR CHAVEZ Admitting Unavailable Chantel, DR Baker Consulting Unavailable RAFFY, DR CHAVEZ Attending Unavailable RAFFY, DR CHAVEZ Consulting Unavailable ANDREA, DR GARCIA Primary Care Unavailable ANDREA, DR GARCIA Admitting Unavailable ANDREA, DR GARCIA Attending Unavailable ANDREA, DR GARCIA Consulting Unavailable ANDREA, DR GARCIA Admitting Unavailable ANDREA, DR GARCIA Attending Unavailable ANDREA, DR GARCIA Consulting Unavailable ANDREA, DR GARCIA Primary Care Unavailable Jose Oneal Primary Care Physician Roel PECK Attending Unavailable Jose Oneal Referring Unavailable Allergies Allergy Classification Reported Allergen(s) Allergy Type Date of Onset Reaction(s) Facility (1 source) No Known Medication Allergies; Translations: [No Known Medication Allergies] Propensity to adverse reactions (disorder) [facility] Repository Medications Current Medications Medication Drug Class(es) Dates Sig (Normalized) Sig (Original) amLODIPine 10 mg / benazepril hydrochloride 40 mg oral capsule (1 source) Dihydropyridine Calcium Channel Nam, Angiotensin Converting Enzyme Inhibitor Start: 10-24-2023 take 1 capsule by mouth once daily amLODIPine-benaz epril 10mg-40 mg Cap 1 cap(s), Oral, Daily, Refill(s) 0 Start Date: 10/24/23 Status: Ordered amLODIPine Besy-Benazepril HCl (1 source) Crutches Underarm Crutches (1 source) Start: 03-22-2021 esomeprazole 20 mg delayed release oral capsule (1 source) Proton Pump Inhibitor Start: 10-24-2023 take 1 capsule by mouth once daily Nexium 20 mg Cap-DR 20 mg = 1 cap(s), Oral, Daily, Refills(s) 0 Start Date: 10/24/23 Status: Ordered levoFLOXacin 750 mg oral tablet (1 source) Quinolone Antimicrobial Start: 11-20-2023 End: 11-27-2023 take 1 tablet by mouth once daily Levaquin 750 mg Tab 750 mg = 1 tab(s), Oral, Daily, X 7 day(s), # 5 tab(s), Refills(s) 0, Pharmacy: [id number], 175.2, cm, 11/20/23 13:23:00 EDT, Height/Length Dosing, 91.5, kg, 11/20/23 13:23:00 EDT, Weight Dosing Start Date: 11/20/23 Stop Date: 11/27/23 Status: Ordered metFORMIN hydrochloride 500 mg oral tablet (1 source) Biguanide Start: 10-24-2023 take 1 tablet by mouth once daily metformin 500 mg Tab 500 mg = 1 tab(s), Oral, Daily, Refills(s) 0 Start Date: 10/24/23 Status: Ordered Problems Active Problems Problem Classification Problem Date Documented Da te Episodic/Chronic Diabetes mellitus without complication (5 sources) Type 2 diabetes mellitus without complications; Translations: [Diabetes mellitus] Onset: 06-06-2021 Chronic Disorders of lipid metabolism (2 sources) Pure hypercholesterolemi a, unspecified; Translations: [Hypercholesterolem ia] Onset: 06-07-2021 10-24-2023 Chronic Esophageal disorders (2 sources) Gastro-esophageal reflux disease without esophagitis; Translations: [Gastroesophageal reflux disease] Onset: 06-07-2021 10-24-2023 Chronic Essential hypertension (2 sources) Essential (primary) hypertension; Translations: [Hypertensive disorder] Onset: 06-07-2021 10-24-2023 Chronic Joint disorders and dislocations; trauma-related (4 sources) Unspecified internal derangement of left knee; Translations: [UNS INTERNAL DERANGEMENT LEFT KNEE] Onset: 07-18-2021 Chronic Other nutritional; endocrine; and metabolic disorders (1 source) Overweight 11-20-2023 Episodic Other nutritional; endocrine; and metabolic disorders (1 source) Overweight in adulthood with body mass index of 25 or more but less than 30 11-20-2023 Episodic Other skin disorders (1 source) Sebaceous cyst of skin; Translations: [Sebaceous cyst] Onset: 11-20-2023 Episodic Other skin disorders (1 source) Epidermoid cyst; Translations: [Epidermal cyst] Onset: 11-20-2023 Episodic Other skin disorders (1 source) Epidermoid cyst of skin 11-20-2023 Episodic Other skin disorders (1 source) Infection of sebaceous cyst 11-20-2023 Episodic Other upper respiratory infections (1 source) Acute sinusitis, unspecified; Translations: [ACUTE SINUSITIS UNSPECIFIED] Onset: 11-24-2021 Episodic Unclassified (3 sources) CONTACT W/AND (SUSP) EXPOS COVID-19; Translations: [CONTACT W/AND (SUSP) EXPOS COVID-19] Onset: 11-24-2021 Past or Other Problems Problem Classification Problem [...] Test Name Value Interpretation Reference Range Facility Ambulatory Visit Summaryon 0 11-20-2023 Ambulatory Visit Summary Ambulatory Visit Summary CASTILLO DOMINGUEZ :1955 Visit Date:11/20/2023 Ambulatory Visit Instructions Your Care Team Attending Physician - LIV HENDERSON, Roel Man Primary Care Physician - Jose Oneal MD Referring Physician - Jose Oneal MD This Is Your Medications List Contact prescribing physician if questions or concerns amlodipine-benazepr il (amLODIPine-benazep ril 10mg-40 mg Cap) esomeprazole (Nexium 20 mg Cap-DR) metformin (metformin 500 mg Tab) Procedures Performed Cataract extraction, Colonoscopy, Repair of left inguinal hernia, Repair of meniscus, Repair of right inguinal hernia, Rotator cuff repair, Vasectomy. Discharge Vitals Heart Rate (Peripheral) 72 Respiratory Rate 16 Blood Pressure 120/72 Height 175.2 cm Height 69 in Weight 91.5 kg Weight 201.3 lb BMI 29.81 Medications What How Much When Instructions Unchanged amlodipine-benazepr il (amLODIPine-benazep ril 10mg-40 mg Cap) 1 Capsules By Mouth Every day Contact prescribing physician if questions or concerns Unchanged esomeprazole (Nexium 20 mg Cap-DR) 1 Capsules By Mouth Every day Contact prescribing physician if questions or concerns Unchanged metformin (metformin 500 mg Tab) 1 Tablets By Mouth Every day Contact prescribing physician if questions or concerns Allergies No Known Allergies No Known Medication Allergies Problems Ongoing - Any problem that you are currently receiving treatment for. BMI 29.0-29.9,adult Diabetes mellitus Gastroesophageal reflux disease HTN (hypertension) Hypercholesterolemi a Overweight Patient Survey You may receive a survey via text or e-mail asking about your office visit. Please share your experience with us by completing your survey. We appreciate your feedback and thank you for choosing us for your care. Normal [facility] Covid-19 PCR (CVDTBH)on 11-01 SARS-CoV-2 (COVID-19) RNA VICKY+probe Ql (Unsp spec) Not detected Normal NOT DETECTED [facility] Comment on above: Result Comment: This test is not yet approved or cleared by the [place] FDA. When there are no FDA-approved or cleared tests available, and other criteria are met, FDA can make tests available under an emergency access mechanism called an Emergency Use Authorization (EUA). The EUA for this test is supported by the Hot [employer] Operator of Health and Human Service's (HHS's) [...] U NATALIE, TSH, T7, CMP, LIPID #### [facility] [address] [place] [address] Dr. Ines So MRI KNEE LT WO CONon 18-2 022 MRI KNEE LT WO CON EXAMINATION: [...] 5. Dawson's cyst.. Electronically authenticated by: JANINE TOPETEJEROMESCOTT Date: 2021-07-18 11:35 Normal [facility] INSULINon 06-08-2021 Insulin 12.3 uIU/mL Normal 2.6-24.9 [facility] Comment on above: Performed By: #### I NSULIN #### [facility] [address] [address] [address] Ines So CBC AUTO DIFFon 06-06-2021 BASO # 0.1 103/ul Normal 0.0-0.1 [facility] Comment on above: Performed By: #### C BC #### [facility] [address] [place] [address] Dr. Ines So Basophils/100 WBC (Bld) 0.5 % Normal 0.2-2.0 [facility] Comment on above: Performed By: #### C BC #### [facility] [address] [place] [address] Dr. Ines So EO # 0.1 103/ul Normal 0.0-0.7 [facility] Comment on above: Performed By: #### C BC #### [facility] [address] [place] [address] Dr. Ines So Eosinophils/100 WBC (Bld) 0.5 % Critically low 0.9-7.0 [facility] Comment on above: Performed By: #### C BC #### [facility] [address] [place] [address] Dr. Ines So Erythrocyte distribution width (RBC) [Ratio] 13.2 % Normal 11.0-15.0 [facility] Comment on above: Performed By: #### C BC #### [facility] [address] [place] [address] Dr. Ines So Hematocrit (Bld) [Volume fraction] 45.9 % Normal 42.0-54.0 [facility] Comment on above: Performed By: #### C BC #### [facility] [address] [place] [address] Dr. Ines So Hemoglobin (Bld) [Mass/Vol] 14.9 g/dL Normal 14.0-18.0 [facility] Comment on above: Performed By: #### C BC #### [facility] [address] [address] [address] Ines So IG # 0.08 10e3/ul Critically high 0.00-0.03 [facility] Comment on above: Performed By: #### C BC #### [facility] [address] [address] [address] Ines So IG % 0.4 % Normal 0.0-0.5 [facility] Comment on above: Performed By: #### C BC #### [facility] [address] [address] [address] Ines So LYMPH # 0.9 103/ul Critically low 1.2-3.8 [facility] Comment on above: Performed By: #### C BC #### [facility] [address] [address] [address] Ines So Lymphocytes/100 WBC (Bld) 4.7 % Critically low 20.5-60.0 [facility] Comment on above: Performed By: #### C BC #### [facility] [address] [address] [address] Ines So MANUAL DIFF REQ NO Normal [facility] Comment on above: Performed By: #### C BC #### [facility] [address] [address] [address] Ines So MCH (RBC) [Entitic mass] 28.8 pg Normal 25.9-34.0 [facility] Comment on above: Performed By: #### C BC #### [facility] [address] [address] [address] Ines So MCHC (RBC) [Mass/Vol] 32.5 g/dL Normal 29.9-35.2 [facility] Comment on above: Performed By: #### C BC #### [facility] [address] [address] [address] Ines So MCV (RBC) [Entitic vol] 88.6 fL Normal 80.0-94.0 [facility] Comment on above: Performed By: #### C BC #### [facility] [address] [address] [address] Ines So MONO # 0.9 103/ul Critically high 0.3-0.8 [facility] Comment on above: Performed By: #### C BC #### [facility] [address] [address] [address] Ines So Monocytes/100 WBC (Bld) 4.9 % Normal 1.7-12.0 [facility] Comment on above: Performed By: #### C BC #### [facility] [address] [place] [address] Dr. Ines So NEUT # 16.2 103/ul Critically high 1.4-6.5 [facility] Comment on above: Performed By: #### C BC #### [facility] [address] [place] [address] Dr. Ines So Neutrophils/100 WBC (Bld) 89.0 % Critically high 43.0-75.0 [facility] Comment on above: Performed By: #### C BC #### [facility] [address] [place] [address] Dr. Ines So Platelet mean volume (Bld) [Entitic vol] 10.6 fL Normal 9.5-13.5 [facility] Comment on above: Performed By: #### C BC #### [facility] [address] [place] [address] Dr. Ines So PLT 202 103/ul Normal 150-450 [facility] Comment on above: Performed By: #### C BC #### [facility] [address] [place] [address] Dr. Ines So RBC 5.18 106/ul Normal 4.70-6.10 [facility] Comment on above: Performed By: #### C BC #### [facility] [address] [place] [address] Dr. Ines So WBC 18.2 103/ul Critically high 4.0-11.0 [facility] Comment on above: Performed By: #### C BC #### [facility] [address] [address] [address] Ines So FREE THYROXINE INDEX T7on FTI 2.75 Normal [facility] Comment on above: Performed By: #### U NATALIE, TSH, T7, CMP, LIPID #### [facility] [address] [address] [address] Ines So T3U 34.0 % Normal 23.5-40.5 [facility] Comment on above: Performed By: #### U NATALIE, TSH, T7, CMP, LIPID #### [facility] [address] [address] [address] Ines So T4 [Mass/Vol] 8.10 ug/dL Normal 5.53-11.00 [facility] Comment on above: Performed By: #### U NATALIE, TSH, T7, CMP, LIPID #### [facility] [address] [address] [address] Ines So GLYCOHEMOGLOBIN A1Con 2021 ADA RECOMMENDATION ADA THERAPEUTIC TARGET 6.0 - 7.0 ACTION SUGGESTED > 7.0 Normal [facility] Comment on above: Performed By: #### A 1C #### [facility] [address] [address] [address] Ines So Glucose [Mass/Vol] 137 mg/dL Normal [facility] Comment on above: Performed By: #### A 1C #### [facility] [address] [place] [address] Dr. Ines So HbA1c (Bld) [Mass fraction] 6.4 % Critically high <=6.0 [facility] Comment on above: Performed By: #### A 1C #### [facility] [address] [address] [address] Ines So LIPID PROFILEon 06-06-2021 CHOL-HDL RATIO NORM SEE BELOW Normal [facility] Comment on above: Result Comment: 3.3 - 4.4 LOW RISK 4.4 - 7.1 AVERAGE RISK 7.1 - 11.0 MODERATE RISK >11.0 HIGH RISK Performed By: #### U NATALIE, TSH, T7, CMP, LIPID #### [facility] [address] [address] [address] Ines So Cholesterol [Mass/Vol] 191 mg/dL Normal <=200 [facility] Comment on above: Performed By: #### U NATALIE, TSH, T7, CMP, LIPID #### [facility] [address] [address] [address] Ines So Cholesterol in HDL [Mass/Vol] 56 mg/dL Normal [facility] Comment on above: Performed By: #### U NATALIE, TSH, T7, CMP, LIPID #### [facility] [address] [address] [address] Ines So Cholesterol in LDL [Mass/Vol] 116.2 mg/dL Normal [facility] Comment on above: Performed By: #### U NATALIE, TSH, T7, CMP, LIPID #### [facility] [address] [address] [address] Ines So Cholesterol.total/Ch olesterol in HDL [Mass ratio] 3.4 {ratio} Normal [facility] Comment on above: Performed By: #### U NATALIE, TSH, T7, CMP, LIPID #### [facility] [address] [address] [address] Ines So HDL NORMAL > or = 60 mg/dl - LOW CARDIOVASCULAR RISK <40 mg/dl - HIGH CARDIOVASCULAR RISK Normal [facility] Comment on above: Performed By: #### U NATALIE, TSH, T7, CMP, LIPID #### [facility] [address] [address] [address] Ines So LDL CALC NORMAL SEE BELOW Normal [facility] Comment on above: Result Comment: <100 mg/dl OPTIMAL 100 - 129 mg/dl NEAR OR ABOVE OPTIMAL 130 - 159 mg/dl BORDERLINE HIGH 160 - 189 mg/dl HIGH >190 mg/dl VERY HIGH Performed By: #### U NATALIE, TSH, T7, CMP, LIPID #### [facility] [address] [address] [address] Ines So Triglyceride [Mass/Vol] 94 mg/dL Normal <=150 [facility] Comment on above: Performed By: #### U NATALIE, TSH, T7, CMP, LIPID #### [facility] [address] [address] [address] Ines So VLDL CALC 18.8 mg/dL Normal [facility] Comment on above: Performed By: #### U NATALIE, TSH, T7, CMP, LIPID #### [facility] [address] [address] [address] Ines So PROF 14(COMP METB)on 022 Albumin [Mass/Vol] 3.8 g/dL Normal 3.5-5.0 [facility] Comment on above: Performed By: #### U NATALIE, TSH, T7, CMP, LIPID #### [facility] [address] [address] [address] Ines So Albumin/Globulin [Mass ratio] 1.2 {ratio} Normal [facility] Comment on above: Performed By: #### U NATALIE, TSH, T7, CMP, LIPID #### [facility] [address] [place] [address] Dr. Ines So ALP [Catalytic activity/Vol] 80 U/L Normal 38-126 [facility] Comment on above: Performed By: #### U NATALIE, TSH, T7, CMP, LIPID #### [facility] [address] [place] [address] Dr. Ines So ALT [Catalytic activity/Vol] 27 U/L Normal 21-72 [facility] Comment on above: Performed By: #### U NATALIE, TSH, T7, CMP, LIPID #### [facility] [address] [place] [address] Dr. Ines So Anion gap [Moles/Vol] 9.6 mmol/L Normal [facility] Comment on above: Performed By: #### U NATALIE, TSH, T7, CMP, LIPID #### [facility] [address] [place] [address] Dr. Ines So AST [Catalytic activity/Vol] 14 U/L Critically low 17-59 [facility] Comment on above: Performed By: #### U NATALIE, TSH, T7, CMP, LIPID #### [facility] [address] [place] [address] Dr. Ines So Bilirubin [Mass/Vol] 1.2 mg/dL Normal 0.2-1.3 [facility] Comment on above: Performed By: #### U NATALIE, TSH, T7, CMP, LIPID #### [facility] [address] [address] [address] Ines So Calcium [Mass/Vol] 9.0 mg/dL Normal 8.4-10.2 [facility] Comment on above: Performed By: #### U NATALIE, TSH, T7, CMP, LIPID #### [facility] [address] [address] [address] Ines So Chloride [Moles/Vol] 105 mmol/L Normal 98-107 [facility] Comment on above: Performed By: #### U NATALIE, TSH, T7, CMP, LIPID #### [facility] [address] [place] [address] Dr. Ines So CO2 [Moles/Vol] 27.4 mmol/L Normal 22.0-30.0 [facility] Comment on above: Performed By: #### U NATALIE, TSH, T7, CMP, LIPID #### [facility] [address] [place] [address] Dr. Ines So Creatinine [Mass/Vol] 1.07 mg/dL Normal 0.66-1.25 [facility] Comment on above: Performed By: #### U NATALIE, TSH, T7, CMP, LIPID #### [facility] [address] [place] [address] Dr. Ines So EGFR-AF TURKMEN >60 Normal >=60 [facility] Comment on above: Performed By: #### U NATALIE, TSH, T7, CMP, LIPID #### [facility] [address] [place] [address] Dr. Ines So EGFR-NON AF TURKMEN >60 Normal >=60 [facility] Comment on above: Performed By: #### U NATALIE, TSH, T7, CMP, LIPID #### [facility] [address] [address] [address] Ines So Globulin (S) [Mass/Vol] 3.3 g/dL Normal [facility] Comment on above: Performed By: #### U NATALIE, TSH, T7, CMP, LIPID #### [facility] [address] [address] [address] Ines So Glucose [Mass/Vol] 136 mg/dL Critically high 74-[address] [facility] Comment on above: Performed By: #### U NATALIE, TSH, T7, CMP, LIPID #### [facility] [address] [address] [address] Ines So Potassium [Moles/Vol] 4.0 mmol/L Normal 3.4-5.0 [facility] Comment on above: Performed By: #### U NATALIE, TSH, T7, CMP, LIPID #### [facility] [address] [place] [address] Dr. Ines So Protein [Mass/Vol] 7.1 g/dL Normal 6.1-8.2 [facility] Comment on above: Performed By: #### U NATALIE, TSH, T7, CMP, LIPID #### [facility] [address] [address] [address] Ines So Sodium [Moles/Vol] 138 mmol/L Normal 137-145 [facility] Comment on above: Performed By: #### U NATALIE, TSH, T7, CMP, LIPID #### [facility] [address] [place] [address] Dr. Ines So Urea nitrogen [Mass/Vol] 18.0 mg/dL Normal 9.0-20.0 [facility] Comment on above: Performed By: #### U NATALIE, TSH, T7, CMP, LIPID #### [facility] [address] [place] [address] Dr. Ines So Urea nitrogen/Creatinine [Mass ratio] 16.8 mg/mg Normal [facility] Comment on above: Performed By: #### U NATALIE, TSH, T7, CMP, LIPID #### [facility] [address] [place] [address] Dr. Ines So TSHon 06-06-2021 TSH 0.735 uIU/mL Normal 0.470-4.680 [facility] Comment on above: Performed By: #### U NATALIE, TSH, T7, CMP, LIPID #### [facility] [address] [place], [place] [address] Dr. Ines So TSH RANGE SEE BELOW Normal [facility] Comment on above: Result Comment: <0.3 4 UIU/ml HYPERTHYROID 0.34-5.60 UIU/ml EUTHYROID >5.60 UIU/ml HYPOTHYROID Performed By: #### U NATALIE, TSH, T7, CMP, LIPID #### [facility] [address] [place], [place] [address] Dr. Ines So URIC ACID SERUMon 06-06-2021 Urate [Mass/Vol] 5.6 mg/dL Normal 3.5-8.5 [facility] Comment on above: Performed By: #### U NATALIE, TSH, T7, CMP, LIPID #### [facility] [address] [place], [place] [address] Dr. Ines So XR knee LT 4V*on 03-22-2021 XR knee LT 4V* [facility] [place] [address] [place] [address] XRay Report Signed Patient: Castillo Dominguez MR#: [id number] : 1955 Acct:[id number] Age/Sex: 65 / M ADM Date: 03/22/21 Loc: [facility] Room: Type: [facility] Attending Dr: Dolly NELSON Ordering Provider: [...] Deandre Ring M.D.03/22/2021 3:02 PM Dictation Location: [address] [place] [address] Transcribed By: [facility] 03/22/21 1502 Dictated By: Deandre Ring DO 03/22/21 1500 Signed By: 03/22/21 1502 Normal [facility] XR knee LT 4V* [facility] [employer] Other XR knee LT 4V* [facility] [employer] Other XR knee LT 4V* [address] [facility] [employer] Other XR knee LT 4V* [place] [address] No rt [employer] Other XR knee LT 4V* XRay Report [employer] Other XR knee LT 4V* Signed [employer] Other XR knee LT 4V* Patient: Castillo Dominguez MR#: [id number] [employer] Other XR knee LT 4V* 1737 [employer] Other XR knee LT 4V* : 1955 Acct:[id number] [employer] Other XR knee LT 4V* Age/Sex: 65 / M ADM Date: 03/22/21 [employer] Other XR knee LT 4V* Loc: [facility] Room: Type: [facility] [employer] Other XR knee LT 4V* Attending Dr: Dolly NELSON [employer] Other XR knee LT 4V* Ordering Provider: LESLIE Cast [employer] Other XR knee LT 4V* Date of Service: 03/22/21 [employer] Other XR knee LT 4V* XR/XR knee LT 4V*: Acute pain of left knee [employer] Other XR knee LT 4V* Copies to: LESLIE Cast [employer] Other XR knee LT 4V* 4 views LEFT knee plain film [employer] Other XR knee LT 4V* COMPARISON:None [employer] Other XR knee LT 4V* HISTORY:Medial LEFT knee pain. Injury. [employer] Other XR knee LT 4V* No fracture, dislocation or focal soft tissue abnormality seen. Small suprapatellar effusion [employer] Other XR knee LT 4V* present. [employer] Other XR knee LT 4V* XR/XR knee LT 4V* [employer] Other XR knee LT 4V* IMPRESSION:No acute findings [employer] Other XR knee LT 4V* Impression dictated by: Deandre Ring M.D.03/22/2021 3:02 PM [employer] Other XR knee LT 4V* Dictation Location: [place] [address] [employer] Other XR knee LT 4V* Transcribed By: [facility] 03/22/21 1502 [employer] Other XR knee LT 4V* Dictated By: Deandre Ring DO 03/22/21 1500 [employer] Other XR knee LT 4V* Signed By: [employer] Other XR knee LT 4V* 03/22/21 1502 [employer] Other Vital Signs Date Time Vital Sign Value Performing Clinician Facility 11-20-2023 13:16-0400 Blood Pressure Location Roel PECK [facility] 11-20-2023 13:16-0400 Diastolic blood pressure 72 mm[Hg] Roel PECK [facility] 11-20-2023 13:16-0400 Heart rate 72 /min Roel PERALTAL [facility] 11-20-2023 13:16-0400 Respiratory rate 16 /min Roel PERALTAL [facility] 11-20-2023 13:16-0400 Systolic blood pressure 120 mm[Hg] Roel PERALTAL [facility] 03-22-2021 14:40-0500 Body height 177.8 cm Dolly Crawford [facility] 03-22-2021 14:40-0500 Body mass index (BMI) [Ratio] 29.7 kg/m2 Dolly Crawford [facility] 03-22-2021 14:40-0500 Body temperature 98.2 [degF] Dolly Crawford [facility] 03-22-2021 14:40-0500 Body weight 93.9 kg Dolly Yvette Other [facility] 03-22-2021 14:40-0500 Diastolic blood pressure 77 mm[Hg] Dolly Crawford [facility] 03-22-2021 14:40-0500 Respiratory rate 16 /min Dolly Crawford [facility] 03-22-2021 14:40-0500 SaO2% (BldA) [Mass fraction] 99 % Dolly Crawford [facility] 03-22-2021 14:40-0500 Systolic blood pressure 123 mm[Hg] Dolly Crawford [facility] Encounters Encounter Date Encounter Type Care Provider Facility Start: 11-20-2023 End: 11-20-2023 ambulatory Roel R KATHRYNL Facility:[facility] Start: 11-20-2023 End: 11-20-2023 Patient encounter procedure Roel R NILL [facility] [place] Start: 10-22-2023 ambulatory Roel PECK Facility:[facility] Start: 11-22-2021 End: 11-22-[address] JOSE ONEAL Facility:[facility] Start: 07-18-2021 End: 07-19-[address] JOSE ONEAL Facility:[facility] Start: 06-06-2021 End: 06-06-[address] JOSE ONEAL Facility:[facility] Start: 03-22-2021 End: 03-22-2021 ambulatory Dolly Crawford [facility] Start: 03-22-2021 Office outpatient ne w 20 minutes Dolly Crawford [facility] [place] Procedures Date Procedure Procedure Detail Performing Clinician Start: 06-06-[address] MARINA ONEAL Comment on above: Performed By: #### [facility] #### [facility] [address] [place] [address] Dr. Ines So Colonoscopy Roel NILL Extraction of cataract Flakito el NILL Repair of left ingui nal hernia Roel NILL Repair of meniscus Roel N ILL Repair of musculoten dinous cuff of shoulder Roel NILL Repair of right ingu inal hernia Roel NILL Vasectomy Roel NILL Immunizations Immunization Date Immunization Notes Care Provider Anamika farooq 07-08-2020 SARS-CoV-2 (COVID-19 ) mRNA-1273 vaccine Roel PECK [facility] Comment on above: Result Comment: 2023: [id number] 06-08-2020 SARS-CoV-2 (COVID-19 ) mRNA-1273 vaccine Roel PECK [facility] Payers Date Payer Category Payer Medicare [id number] 2023 Unknown [id number] 2023 Unknown [id number] 1959 Private Health Insurance [id number] 1959 Self-pay 1955 Unknown [id number] 1955 Unknown [id number] 1955 Unknown [id number] 1955 Unknown [id number] Social History Date Type Detail Facility Unknown if ever smoked [facility] Start: 11-20-2023 Tobacco smoking status Smokes tobacco daily (finding) [facility] Tobacco smoking status Never [facility] Sex Assigned At Male [facility] Functional Status Date Assessment Result Facility 11-20-2023 Functional Status N/A [facility] Clinical Note 11-20-2023 Note Date & Type Note Facility 11-20-2023 Note General Surgery Offi ce/Clinic Note Chief Complaint consultation for sebaceous cyst HPI Staff 68 year old male presents on consultation from Dr. Oneal for sebaceous cyst upper back x 2. History of Present Illness 68 yo male with h/o htn, DM, hypercholesterolemia, GERD, referred for epidermal cysts of upper back x 3; patient reports h/o cysts on back for several years, now one on mid back is sore and enlarged; no drainage, no antibiotic therapy; one on left upper back has drained intermittently if it was squeezed, no infection, no recent drainage. no asa or NSAID use; smokes cigars. Review of Systems PHQ Score Initial Depression Screen Score: 0 SCORE ROS - Provider Constitutional: no fever, no sweats, no weight loss. Eyes: yes glasses, no blurred vision, no visual loss. ENMT: no dentures, no hoarseness, no swallowing difficulties, no hearing loss, no ear infection(s), no nose bleeds. Cardiovascular: normal blood pressure, no chest pain, regular heartbeat, no heart murmur. Respiratory: no shortness of breath, no cough, no asthma, no wheezing. Gastrointestinal: no nausea, no vomiting, no diarrhea, no constipation, no blood in stool, no change in bowel habits, no abdominal pain, no hepatitis. Genitourinary: no kidney stones, no urine infection, no dysuria. Musculoskeletal: no pain, no weakness. Skin: no changing moles, no rash, yes skin lumps. Neurologic: no seizures, no epilepsy, no headache. Psychiatric: no emotional or psychiatric problem. Heme/Lymph: no bleeding problems, no anemia, no blood clots, no transfusions. Allergy/Immunologic: no swollen lymph nodes/glands, no IV drug abuse. Other: Additional ROS info: Except as noted in the above Review of Systems and in the History of Present Illness, all other systems have been reviewed and are negative or noncontributory. Physical Exam Vitals & Measurements HR: 72(Peripheral) RR: 16 BP: 120/72 HT: 69 in HT: 175.2 cm WT: 91.5 kg WT: 201.3 lb BMI: 29.81 HEENT: normal conjunctiva, sclera clear, no scleral icterus, EOM intact, PERRLA, oral mucosa moist without lesions. Neck: trachea midline, no mass, symmetric, no thyromegaly or nodules, no adenopathy Respiratory: lungs CTA, respirations non labored. Cardiovascular: regular rate and rhythm, no murmur, no pedal edema or varicosities. Musculoskeletal: normal gait, digits and nails without infection, nodes, cyanosis, clubbing. Skin: no rashes, no lesions, no ulcers, left upper back with 1.5 cm epidermal cyst, nontender, no drainage; upper mid back with 1.5 cm epidermal cyst, nontender, no drainage; mid back with 3 cm epidermal cyst, tender, mild inflammation, no cellulitis, no fluctuance, no open areas or drianage Psychiatric/Neuro: oriented to time, place, person, judgement normal, affect appropriate for age, insight intact, no focal deficits. Tests: review of old records completed , Discussed surgical options, risks, and possible complications with patient. Assessment/Plan 1. Infected sebaceous cyst (L72.3: Sebaceous cyst) recommend course of Levaquin, then excisional biopsy under local anesthesia, along with other 2 cysts; informed consent obtained. call sooner if problems/questions. Ordered: levofloxacin, 750 mg = 1 tab(s), Oral, Daily, X 7 day(s), # 5 tab(s), Refills(s) 0, Pharmacy: [id number], 175.2, cm, 11/20/23 13:23:00 EDT, Height/Length Dosing, 91.5, kg, 11/20/23 13:23:00 EDT, Weight Dosing 2. Epidermal cyst (L72.0: Epidermal cyst) see # 1 Follow-up No qualifying data available Problem List/Past Medical History Ongoing BMI 29.0-29.9,adult Diabetes mellitus Epidermal cyst Gastroesophageal reflux disease HTN (hypertension) Hypercholesterolemia Infected sebaceous cyst Overweight Historical No qualifying data Procedure/Surgical History Cataract extraction, Colonoscopy, Repair of left inguinal hernia, Repair of meniscus, Repair of right inguinal hernia, Rotator cuff repair, Vasectomy. Medications amLODIPine-benazepril 10mg-40 mg Cap, 1 cap(s), Oral, Daily Levaquin 750 mg Tab, 750 mg= 1 tab(s), Oral, Daily metformin 500 mg Tab, 500 mg= 1 tab(s), Oral, Daily Nexium 20 mg Cap-DR, 20 mg= 1 cap(s), Oral, Daily Allergies No Known Allergies No Known Medication Allergies Social History Alcohol - Denies Alcohol Use, 11/20/2023 Substance Abuse - Denies Substance Abuse, 11/20/2023 Tobacco Cigars or pipes daily within last 30 days Tobacco Use:. Never Smokeless Tobacco Use:. Cigars, Started age 33.0 Years. Yes, 11/20/2023 Family History Alzheimer's disease: Mother. Diabetes mellitus type 2: Mother. Immunizations Vaccine Date Status Comments SARS-CoV-2 (COVID-19) mRNA-1273 vaccine 07/08/2020 Recorded 2023-10-24: [id number] SARS-CoV-2 (COVID-19) mRNA-1273 vaccine 06/08/2020 Recorded [facility] Comment on above: Result Comment: Elec tronically Signed By: LIV HENDERSON, Roel Mcclure\Date and Time Signed: 11/20/23 14:34 EDT Evaluation + Plan note Note Date & Type Note Facility Evaluation + Plan note No data available for this section [facility] Evaluation note Note Date & Type Note Facility Evaluation note [facility] Other History general Narrative - Reported Note Date & Type Note Facility History general Narrative - Reported [facility] [employer] Other Hospital Discharge instructions Note Date & Type Note Facility Hospital Discharge instructions No data available for this section [facility] Progress note Note Date & Type Note Facility Progress note No data available for this section [facility] Summary Purpose Family History No Family History Records FoundNo Family History Records Found No data available for this section No Family History Records Found Advance Directives No Advanced Directives Records FoundNo Advanced Directives Records FoundNo Advanced Directives Records Found Additional Source Comments (unrecognized sect ion and content) No Status Records FoundNo Status Records FoundNo Status Records Found INFORMATION SOURCE (unrecogn ized section and content) DATE CREATED AUTHOR 03/26/2021 [facility] DATE CREATED AUTHOR AUTHOR'S ORGANIZ ATION 11/25/2021 [facility] DATE CREATED AUTHOR AUTHOR'S ORGANIZ ATION 11/22/2023 [facility] Patient Care team informatio n (unrecognized section and content) Personnel Name: Jose Oneal MD Address: Address: [address] [place] [address] FOR RECORDS PERTAINING TO PATIENTS WHO ARE [...] BE BASED ON THE PRIMARY CLINICAL RECORDS. [facility] [employer] [facility]. provides no warranty or guarantee of the accuracy or completeness of information in this document.
== END 2023-12-04 12:31 | disposition home or self-care (01) ==
LOC: PST 12:30
PROVIDERS: PCP Family Medicine; Visit Provider Surgery
DX: Z01.818 Encounter for other preprocedural examination (principal); L08.9 Local infection of the skin and subcutaneous tissue, unspecified; L72.0 Epidermal cyst; L72.3 Sebaceous cyst

== ENCOUNTER 2023-12-05 09:40 | Day surgery (SDC) | payer MEDICARE, OTHER, SELFPAY ==
--- NOTE | 2023-12-05 | OP_ITS ---
OPERATION DATE: 12/05/2023 PREOPERATIVE DIAGNOSIS: Enlarging epidermal cyst of the back, including recently ruptured and infected cyst in the mid back. POSTOPERATIVE DIAGNOSIS: Enlarging epidermal cyst of the back, including recently ruptured and infected cyst in the mid back. PROCEDURE: Excisional biopsy epidermal cyst of the mid and left upper back x3. SURGEON: Roel Christopher M.D. ANESTHESIA: Local with 0.5% Marcaine plain. ESTIMATED BLOOD LOSS: Less than 12 mL. INDICATIONS AND CONSENT: Patient is a 68-year-old male with a long history of enlarging epidermal cysts of the back. The left upper back one had been previously draining intermittently, but had not been infected. He recently had increased swelling, pain, inflammation and infection of the mid back lesion with no drainage. It did improve somewhat with antibiotics, but still remains swollen and inflamed. Indications, risks, benefits, alternatives of proceeding with excisional biopsy of these cysts on the back x3 under local anesthesia were explained extensively to the patient, including the risks of bleeding, infection, scarring, pain, recurrence, need for further surgery. All of his questions were answered. Informed consent was obtained. PROCEDURE: Patient was brought to the operating room, placed in the prone position. The areas were prepped and draped in the usual sterile fashion. The mid back lesion was prepped and draped in the usual sterile fashion, was anesthetized with 0.5% Marcaine. An elliptical incision was made over the area, which was approximately 4.5 cm, encompassing the central pore and carried down to subcutaneous tissue using sharp dissection. It was noted to be a ruptured cyst with some inflammation, no purulence but the area was inflamed. This was carefully dissected out and sent off to Pathology. The posterior wall was ruptured and inflamed, and this was irrigated. It could not be removed. Hemostasis was achieved with electrocautery, as well as with 3-0 Monocryl subcutaneous sutures. The skin was then closed with 3-0 nylon mattress sutures as well as 4-0 nylon simple sutures. There was good hemostasis. The two left upper back lesions were then prepped and draped and anesthetized in the same manner. The lower, more medial lesion was approximately 2 cm. This was excised in identical fashion and sent off to Pathology. The wound was closed in identical fashion. The more lateral upper left back lesion was approximately 3 cm and this was excised and closed in identical fashion. Sterile pressure dressings were applied. Sponge and needle counts were correct x2 per nursing personnel. Patient tolerated procedure well, was sent back to recovery room and then discharged to home in good condition. He will take Levaquin for five days and ibuprofen or Aleve as needed for pain. He is to call us with problems or questions and follow up in 10-14 days for suture removal. He is to call sooner with any problems or questions. CC: Deepak Oneal M.D. ALYSSA
--- OUTSIDE RECORDS SUMMARY | 2023-12-05 10:02 | XMS_ITS | CCD ---
Author Organization [facility] Inform ion Partnership [facility] Care Team Providers Care Computer Forensics Investigator Name Role Phone Dolly Crawford Unavailable DR [...] Medication Allergies] Propensity to adverse reactions (disorder) [facility] Repository Medications Current Medications Medication Drug Class(es) [...] day(s), # 5 tab(s), Refills(s) 0, [facility]acy: [facility], 175.2, cm, 11/20/23 13:23:00 EDT, Height/Length [...] for choosing us for your care. Normal [facility] Covid-19 PCR (CVDTBH)on 11-01 SARS-CoV-2 (COVID-19) RNA VICKY+probe Ql (Unsp spec) Not detected Normal NOT DETECTED [facility] Comment on above: Result Comment: This test is not yet approved or cleared by the [place] FDA. When there are no FDA-approved or cleared tests available, and other criteria are met, FDA can make tests available under an emergency access mechanism called an Emergency Use Authorization (EUA). The EUA for this test is supported by the Intake Worker of Health and Human Service's (HHS's) declaration [...] U NATALIE, TSH, T7, CMP, LIPID #### [facility] [address] [place] [address] Dr. Ines So MRI KNEE LT WO [...] JANINE TOPETEJEROMESCOTT Date: 2021-07-18 11:35 Normal [facility] INSULINon 06-08-2021 Insulin 12.3 uIU/mL Normal 2.6-24.9 [facility] Comment on above: Performed By: #### I NSULIN #### [facility] [address] [place] [address] [address] Ines So CBC AUTO DIFFon 06-06-2021 BASO # 0.1 103/ul Normal 0.0-0.1 [facility] Comment on above: Performed By: #### C BC #### [facility] [address] [place] [address] Dr. Ines So Basophils/100 WBC (Bld) 0.5 % Normal 0.2-2.0 [facility] Comment on above: Performed By: #### C BC #### [facility] [address] [place] [address] Dr. Ines So EO # 0.1 103/ul Normal 0.0-0.7 [facility] Comment on above: Performed By: #### C BC #### [facility] [address] [place] [address] Dr. Ines So Eosinophils/100 WBC (Bld) 0.5 % Critically low 0.9-7.0 [facility] Comment on above: Performed By: #### C BC #### [facility] [address] [place] [address] Dr. Ines So Erythrocyte distribution width (RBC) [Ratio] 13.2 % Normal 11.0-15.0 [facility] Comment on above: Performed By: #### C BC #### [facility] [address] [place] [address] Dr. Ines So Hematocrit (Bld) [Volume fraction] 45.9 % Normal 42.0-54.0 [facility] Comment on above: Performed By: #### C BC #### [facility] [address] [place] [address] Dr. Ines So Hemoglobin (Bld) [Mass/Vol] 14.9 g/dL Normal 14.0-18.0 [facility] Comment on above: Performed By: #### C BC #### [facility] [address] [address] [address] Ines So IG # 0.08 10e3/ul Critically high 0.00-0.03 [facility] Comment on above: Performed By: #### C BC #### [facility] [address] [address] [address] Ines So IG % 0.4 % Normal 0.0-0.5 [facility] Comment on above: Performed By: #### C BC #### [facility] [address] [address] [address] Ines So LYMPH # 0.9 103/ul Critically low 1.2-3.8 [facility] Comment on above: Performed By: #### C BC #### [facility] [address] [address] [address] Ines So Lymphocytes/100 WBC (Bld) 4.7 % Critically low 20.5-60.0 [facility] Comment on above: Performed By: #### C BC #### [facility] [address] [address] [address] Ines So MANUAL DIFF REQ NO Normal [facility] Comment on above: Performed By: #### C BC #### [facility] [address] [address] [address] Ines So MCH (RBC) [Entitic mass] 28.8 pg Normal 25.9-34.0 [facility] Comment on above: Performed By: #### C BC #### [facility] [address] [address] [address] Ines So MCHC (RBC) [Mass/Vol] 32.5 g/dL Normal 29.9-35.2 [facility] Comment on above: Performed By: #### C BC #### [facility] [address] [address] [address] Ines So MCV (RBC) [Entitic vol] 88.6 fL Normal 80.0-94.0 [facility] Comment on above: Performed By: #### C BC #### [facility] [address] [address] [address] Ines So MONO # 0.9 103/ul Critically high 0.3-0.8 [facility] Comment on above: Performed By: #### C BC #### [facility] [address] [address] [address] Ines So Monocytes/100 WBC (Bld) 4.9 % Normal 1.7-12.0 [facility] Comment on above: Performed By: #### C BC #### [facility] [address] [place] [address] Dr. Ines So NEUT # 16.2 103/ul Critically high 1.4-6.5 [facility] Comment on above: Performed By: #### C BC #### [facility] [address] [place] [address] Dr. Ines So Neutrophils/100 WBC (Bld) 89.0 % Critically high 43.0-75.0 [facility] Comment on above: Performed By: #### C BC #### [facility] [address] [place] [address] Dr. Ines So Platelet mean volume (Bld) [Entitic vol] 10.6 fL Normal 9.5-13.5 [facility] Comment on above: Performed By: #### C BC #### [facility] [address] [place] [address] Dr. Ines So PLT 202 103/ul Normal 150-450 [facility] Comment on above: Performed By: #### C BC #### [facility] [address] [place] [address] Dr. Ines So RBC 5.18 106/ul Normal 4.70-6.10 [facility] Comment on above: Performed By: #### C BC #### [facility] [address] [place] [address] Dr. Ines So WBC 18.2 103/ul Critically high 4.0-11.0 [facility] Comment on above: Performed By: #### C BC #### [facility] [address] [address] [address] Ines So FREE THYROXINE INDEX T7on FTI 2.75 Normal [facility] Comment on above: Performed By: #### U NATALIE, TSH, T7, CMP, LIPID #### [facility] [address] [address] [address] Ines So T3U 34.0 % Normal 23.5-40.5 [facility] Comment on above: Performed By: #### U NATALIE, TSH, T7, CMP, LIPID #### [facility] [address] [address] [address] Ines So T4 [Mass/Vol] 8.10 ug/dL Normal 5.53-11.00 [facility] Comment on above: Performed By: #### U NATALIE, TSH, T7, CMP, LIPID #### [facility] [address] [address] [address] Ines So GLYCOHEMOGLOBIN A1Con 2021 ADA RECOMMENDATION ADA THERAPEUTIC TARGET 6.0 - 7.0 ACTION SUGGESTED > 7.0 Normal [facility] Comment on above: Performed By: #### A 1C #### [facility] [address] [address] [address] Ines So Glucose [Mass/Vol] 137 mg/dL Normal [facility] Comment on above: Performed By: #### A 1C #### [facility] [address] [place] [address] Dr. Ines So HbA1c (Bld) [Mass fraction] 6.4 % Critically high <=6.0 [facility] Comment on above: Performed By: #### A 1C #### [facility] [address] [address] [address] Ines So LIPID PROFILEon 06-06-2021 CHOL-HDL RATIO NORM SEE BELOW Normal [facility] Comment on above: Result Comment: 3.3 - 4.4 LOW RISK 4.4 - 7.1 AVERAGE RISK 7.1 - 11.0 MODERATE RISK >11.0 HIGH RISK Performed By: #### U NATALIE, TSH, T7, CMP, LIPID #### [facility] [address] [address] [address] Ines So Cholesterol [Mass/Vol] 191 mg/dL Normal <=200 [facility] Comment on above: Performed By: #### U NATALIE, TSH, T7, CMP, LIPID #### [facility] [address] [address] [address] Ines So Cholesterol in HDL [Mass/Vol] 56 mg/dL Normal [facility] Comment on above: Performed By: #### U NATALIE, TSH, T7, CMP, LIPID #### [facility] [address] [address] [address] Ines So Cholesterol in LDL [Mass/Vol] 116.2 mg/dL Normal [facility] Comment on above: Performed By: #### U NATALIE, TSH, T7, CMP, LIPID #### [facility] [address] [address] [address] Ines So Cholesterol.total/Ch olesterol in HDL [Mass ratio] 3.4 {ratio} Normal [facility] Comment on above: Performed By: #### U NATALIE, TSH, T7, CMP, LIPID #### [facility] [address] [address] [address] Ines So HDL NORMAL > or = 60 mg/dl - LOW CARDIOVASCULAR RISK <40 mg/dl - HIGH CARDIOVASCULAR RISK Normal [facility] Comment on above: Performed By: #### U NATALIE, TSH, T7, CMP, LIPID #### [facility] [address] [address] [address] Ines So LDL CALC NORMAL SEE BELOW Normal [facility] Comment on above: Result Comment: <100 mg/dl OPTIMAL 100 - 129 mg/dl NEAR OR ABOVE OPTIMAL 130 - 159 mg/dl BORDERLINE HIGH 160 - 189 mg/dl HIGH >190 mg/dl VERY HIGH Performed By: #### U NATALIE, TSH, T7, CMP, LIPID #### [facility] [address] [address] [address] Ines So Triglyceride [Mass/Vol] 94 mg/dL Normal <=150 [facility] Comment on above: Performed By: #### U NATALIE, TSH, T7, CMP, LIPID #### [facility] [address] [address] [address] Ines So VLDL CALC 18.8 mg/dL Normal [facility] Comment on above: Performed By: #### U NATALIE, TSH, T7, CMP, LIPID #### [facility] [address] [address] [address] Ines So PROF 14(COMP METB)on 022 Albumin [Mass/Vol] 3.8 g/dL Normal 3.5-5.0 [facility] Comment on above: Performed By: #### U NATALIE, TSH, T7, CMP, LIPID #### [facility] [address] [address] [address] Ines So Albumin/Globulin [Mass ratio] 1.2 {ratio} Normal [facility] Comment on above: Performed By: #### U NATALIE, TSH, T7, CMP, LIPID #### [facility] [address] [place] [address] Dr. Ines So ALP [Catalytic activity/Vol] 80 U/L Normal 38-126 [facility] Comment on above: Performed By: #### U NATALIE, TSH, T7, CMP, LIPID #### [facility] [address] [place] [address] Dr. Ines So ALT [Catalytic activity/Vol] 27 U/L Normal 21-72 [facility] Comment on above: Performed By: #### U NATALIE, TSH, T7, CMP, LIPID #### [facility] [address] [place] [address] Dr. Ines So Anion gap [Moles/Vol] 9.6 mmol/L Normal [facility] Comment on above: Performed By: #### U NATALIE, TSH, T7, CMP, LIPID #### [facility] [address] [place] [address] Dr. Ines So AST [Catalytic activity/Vol] 14 U/L Critically low 17-59 [facility] Comment on above: Performed By: #### U NATALIE, TSH, T7, CMP, LIPID #### [facility] [address] [place] [address] Dr. Ines So Bilirubin [Mass/Vol] 1.2 mg/dL Normal 0.2-1.3 [facility] Comment on above: Performed By: #### U NATALIE, TSH, T7, CMP, LIPID #### [facility] [address] [address] [address] Ines So Calcium [Mass/Vol] 9.0 mg/dL Normal 8.4-10.2 [facility] Comment on above: Performed By: #### U NATALIE, TSH, T7, CMP, LIPID #### [facility] [address] [address] [address] Ines So Chloride [Moles/Vol] 105 mmol/L Normal 98-107 [facility] Comment on above: Performed By: #### U NATALIE, TSH, T7, CMP, LIPID #### [facility] [address] [place] [address] Dr. Ines So CO2 [Moles/Vol] 27.4 mmol/L Normal 22.0-30.0 [facility] Comment on above: Performed By: #### U NATALIE, TSH, T7, CMP, LIPID #### [facility] [address] [place] [address] Dr. Ines So Creatinine [Mass/Vol] 1.07 mg/dL Normal 0.66-1.25 [facility] Comment on above: Performed By: #### U NATALIE, TSH, T7, CMP, LIPID #### [facility] [address] [place] [address] Dr. Ines So EGFR-AF LIBYAN >60 Normal >=60 [facility] Comment on above: Performed By: #### U NATALIE, TSH, T7, CMP, LIPID #### [facility] [address] [place] [address] Dr. Ines So EGFR-NON AF LIBYAN >60 Normal >=60 [facility] Comment on above: Performed By: #### U NATALIE, TSH, T7, CMP, LIPID #### [facility] [address] [address] [address] Ines So Globulin (S) [Mass/Vol] 3.3 g/dL Normal [facility] Comment on above: Performed By: #### U NATALIE, TSH, T7, CMP, LIPID #### [facility] [address] [address] [address] Ines So Glucose [Mass/Vol] 136 mg/dL Critically high 74-106 T [facility] Comment on above: Performed By: #### U NATALIE, TSH, T7, CMP, LIPID #### [facility] [address] [address] [address] Ines So Potassium [Moles/Vol] 4.0 mmol/L Normal 3.4-5.0 [facility] Comment on above: Performed By: #### U NATALIE, TSH, T7, CMP, LIPID #### [facility] [address] [place] [address] Dr. Ines So Protein [Mass/Vol] 7.1 g/dL Normal 6.1-8.2 [facility] Comment on above: Performed By: #### U NATALIE, TSH, T7, CMP, LIPID #### [facility] [address] [address] [address] Ines So Sodium [Moles/Vol] 138 mmol/L Normal 137-145 [facility] Comment on above: Performed By: #### U NATALIE, TSH, T7, CMP, LIPID #### [facility] [address] [place] [address] Dr. Ines So Urea nitrogen [Mass/Vol] 18.0 mg/dL Normal 9.0-20.0 [facility] Comment on above: Performed By: #### U NATALIE, TSH, T7, CMP, LIPID #### [facility] [address] [place] [address] Dr. Ines So Urea nitrogen/Creatinine [Mass ratio] 16.8 mg/mg Normal [facility] Comment on above: Performed By: #### U NATALIE, TSH, T7, CMP, LIPID #### [facility] [address] [place] [address] Dr. Ines So TSHon 06-06-2021 TSH 0.735 uIU/mL Normal 0.470-4.680 [facility] Comment on above: Performed By: #### U NATALIE, TSH, T7, CMP, LIPID #### [facility] [address] [place], [place] [address] Dr. Ines So TSH RANGE SEE BELOW Normal [facility] Comment on above: Result Comment: <0.3 4 UIU/ml HYPERTHYROID 0.34-5.60 UIU/ml EUTHYROID >5.60 UIU/ml HYPOTHYROID Performed By: #### U NATALIE, TSH, T7, CMP, LIPID #### [facility] [address] [place], [place] [address] Dr. Ines So URIC ACID SERUMon 06-06-2021 Urate [Mass/Vol] 5.6 mg/dL Normal 3.5-8.5 [facility] Comment on above: Performed By: #### U NATALIE, TSH, T7, CMP, LIPID #### [facility] [address] [place], [place] [address] Dr. Ines So XR knee LT 4V*on 03-22-2021 XR knee LT 4V* [facility] [place] [address] [place] [address] XRay Report Signed Patient: Castillo Dominguez MR#: [id number] : 1955 Acct:[id number] Age/Sex: 65 / M ADM Date: 03/22/21 Loc: [facility] Room: Type: [facility] Attending [...] Deandre Ring M.D.03/22/2021 3:02 PM Dictation Location: [place] [address] Transcribed By: [facility] 03/22/21 1502 Dictated By: Deandre Ring DO 03/22/21 1500 Signed By: 03/22/21 1502 Normal [facility] XR knee LT 4V* [facility] [employer] Other XR knee LT 4V* [facility] [employer] Other XR knee LT 4V* [address] [facility] [employer] Other XR knee LT 4V* [place] [address] No rt [employer] Other XR knee LT 4V* XRay Report [employer] Other XR knee LT 4V* S[employer] Other XR knee LT 4V* Patient: Castillo Dominguez MR#: [id number] [place] [employer] Other XR knee LT 4V* 1737 [employer] Other XR knee LT 4V* : 1955 Acct:[id number] [facility] Other XR knee LT 4V* Age/Sex: 65 / M ADM Date: 03/22/21 [facility] Other XR knee LT 4V* Loc: XDUCLY Room: Type: [facility] Other XR knee LT 4V* Attending Dr: Dolly NELSON [facility] Other XR knee LT 4V* Ordering Provider: LESLIE Cast [facility] Other XR knee LT 4V* Date of Service: 03/22/21 [facility] Other XR knee LT 4V* XR/XR knee LT 4V*: Acute pain of left knee [facility] Other XR knee LT 4V* Copies to: LESLIE Cast [facility] Other XR knee LT 4V* 4 views LEFT knee plain film [facility] Other XR knee LT 4V* COMPARISON:None [facility] Other XR knee LT 4V* HISTORY:Medial LEFT knee pain. Injury. [facility] Other XR knee LT 4V* No fracture, dislocation or focal soft tissue abnormality seen. Small suprapatellar effusion [facility] Other XR knee LT 4V* present. [employer] Other XR knee LT 4V* XR/XR knee LT 4V* [facility] Other XR knee LT 4V* IMPRESSION:No acute findings [facility] Other XR knee LT 4V* Impression dictated by: Deandre Ring M.D.03/22/2021 3:02 PM [facility] Other XR knee LT 4V* Dictation Location: [place] [address] [facility] Other XR knee LT 4V* Transcribed By: [facility] 03/22/21 1502 [facility] Other XR knee LT 4V* Dictated By: Deandre Ring DO 03/22/21 1500 [facility] Other XR knee LT 4V* Signed By: [employer] Other XR knee LT 4V* 03/22/21 1502 [employer] Other Vital Signs Date Time Vital Sign Value Performing Clinician Facility 11-20-2023 13:16-0400 Blood Pressure Location Roel PECK [facility] 11-20-2023 13:16-0400 Diastolic blood pressure 72 mm[Hg] Roel PECK [facility] 11-20-2023 13:16-0400 Heart rate 72 /min Roel PERALTAL [facility] 11-20-2023 13:16-0400 Respiratory rate 16 /min Roel PERALTAL [facility] 11-20-2023 13:16-0400 Systolic blood pressure 120 mm[Hg] Roel PERALTAL [facility] 03-22-2021 14:40-0500 Body height 177.8 cm Dolly Crawford Other [facility] Other 03-22-2021 14:40-0500 Body mass index (BMI) [Ratio] 29.7 kg/m2 Dolly Crawford Other [facility] Other 03-22-2021 14:40-0500 Body temperature 98.2 [degF] Dolly Crawford Other [facility] Other 03-22-2021 14:40-0500 Body weight 93.9 kg Dolly Yvette Other [facility] Other 03-22-2021 14:40-0500 Diastolic blood pressure 77 mm[Hg] Dolly Crawford Other [facility] Other 03-22-2021 14:40-0500 Respiratory rate 16 /min Dolly Crawford Other [facility] Other 03-22-2021 14:40-0500 SaO2% (BldA) [Mass fraction] 99 % Dolly Crawford Other [facility] Other 03-22-2021 14:40-0500 Systolic blood pressure 123 mm[Hg] Dolly Crawford Other [facility] Other Encounters Encounter Date Encounter Type Care Provider Facility Start: 11-20-2023 End: 11-20-2023 ambulatory Roel R KATHRYNL Facility:[facility] Start: 11-20-2023 End: 11-20-2023 Patient encounter procedure Roel R NILL [facility] [place] Start: 10-22-2023 ambulatory Roel PECK Facility:[facility] Start: 11-22-2021 End: 11-22-[address] JOSE ONEAL Facility:[facility] Start: 07-18-2021 End: 07-19-[address] JOSE ONEAL Facility:[facility] Start: 06-06-2021 End: 06-06-[address] JOSE ONEAL Facility:[facility] Start: 03-22-2021 End: 03-22-2021 ambulatory Dolly Crawford Other [facility] Other Start: 03-22-2021 Office outpatient ne w 20 minutes Dolly Crawford [facility] Procedures Date Procedure Procedure Detail Performing Clinician Start: 06-06-[address] MARINA ONEAL Comment on above: Performed By: #### P [facility] #### [facility] [address] [place] [address] Dr. Ines So Colonoscopy Roel NILL Extraction of cataract Flakito el NILL Repair of left ingui nal hernia Roel NILL Repair of meniscus Roel N ILL Repair of musculoten dinous cuff of shoulder Roel NILL Repair of right ingu inal hernia Roel NILL Vasectomy Roel NILL Immunizations Immunization Date Immunization Notes Care Provider Anamika farooq 07-08-2020 SARS-CoV-2 (COVID-19 ) mRNA-1273 vaccine Roel PECK [facility] Comment on above: Result Comment: 2023: [id number] 06-08-2020 SARS-CoV-2 (COVID-19 ) mRNA-1273 vaccine Roel PECK [facility] Payers Date Payer Category Payer Medicare [id number] 2023 Unknown [id number] 2023 Unknown [id number] 1959 Private Health Insurance [id number] 1959 Self-pay 1955 Unknown [id number] 1955 Unknown [id number] [id number] [id number] 1955 Unknown [id number] [id number] [id number] 1955 Unknown [id number] Social History Date Type Detail Facility Unknown if ever smoked [facility] Other Start: 11-20-2023 Tobacco smoking status Smokes tobacco daily (finding) [facility] Tobacco smoking status Never [facility] Sex Assigned At Male [facility] Functional Status Date Assessment Result Facility 11-20-2023 Functional Status N/A [facility] [place] Clinical Note 11-20-2023 Note Date & Type [...] day(s), # 5 tab(s), Refills(s) 0, [facility]acy: [facility], 175.2, cm, 11/20/23 13:23:00 EDT, Height/Length [...] [id number] SARS-CoV-2 (COVID-19) mRNA-1273 vaccine 06/08/2020 Recorded [facility] Comment on above: Result Comment: Elec tronically Signed By: LIV HENDERSON, Roel Mcclure\Date and Time Signed: 11/20/23 14:34 EDT Evaluation + Plan note Note Date & Type Note Facility Evaluation + Plan note No data available for this section [facility] Evaluation note Note Date & Type Note Facility Evaluation note [facility] [employer] Other History general Narrative - Reported Note Date & Type Note Facility History general Narrative - Reported [facility] [employer] Other Hospital Discharge instructions Note Date & Type Note Facility Hospital Discharge instructions No data available for this section [facility] Progress note Note Date & Type Note Facility Progress note No data available for this section [facility] Summary Purpose Family History No Family History [...] section and content) DATE CREATED AUTHOR 03/26/2021 [facility] DATE CREATED AUTHOR AUTHOR'S ORGANIZ ATION 11/25/2021 [facility] DATE CREATED AUTHOR AUTHOR'S ORGANIZ ATION 11/22/2023 [facility] Patient Care team informatio n (unrecognized section and content) Personnel Name: Jose Oneal MD Address: Address: [address] [place] [address] FOR RECORDS PERTAINING TO PATIENTS WHO ARE [...] BE BASED ON THE PRIMARY CLINICAL RECORDS. [facility] [employer] [facility]. provides no warranty or guarantee of the accuracy or completeness of information in this document.
[2023-12-05 10:38] VITALS: BP 103/71; PULSE 48; O2SAT 99
[2023-12-05] MEDS: BUPIVACAINE HCL 0.5% PF 50 MG/10 ML VIAL 20 ML INJ (11:43)
[2023-12-05 11:58] VITALS: BP 119/65; PULSE 44; O2SAT 99
== END 2023-12-05 12:04 | disposition home or self-care (01) ==
PROVIDERS: PCP Family Medicine; Visit Provider Surgery
PROC: (CPT 11402; principal; 2023-12-05 10:10)
DX: L72.0 Epidermal cyst (principal); M54.89 Other dorsalgia; R22.2 Localized swelling, mass and lump, trunk; L08.9 Local infection of the skin and subcutaneous tissue, unspecified
CPT/HCPCS: 11402; 11403; 11406; 12032; 88304; J0665

== ENCOUNTER 2024-01-25 10:58 | Outpatient (OUT) | payer MEDICARE, OTHER, SELFPAY ==
--- OUTSIDE RECORDS SUMMARY | 2024-01-25 11:15 | XMS_ITS | CCD ---
Author Organization [facility] Care Team Providers Care Land Acquisition Analyst Name Role Phone Dolly Crawford Unavailable KIMMY, DR GARCIA Primary Care Unavailable RAFFY, DR CHAVEZ Admitting Unavailable Zieber, DR Baker Consulting Unavailable AKBAR, DR CHAVEZ Attending Unavailable RAFFY, DR CHAVEZ Consulting Unavailable KIMMY, DR GARCIA Primary Care Unavailable KIMMY, DR GARCIA Admitting Unavailable KIMMY, DR GARCIA Attending Unavailable JSY, DR GARCIA Consulting Unavailable HOY, DR GARCIA Admitting Unavailable HOY, DR GARCIA Attending Unavailable HOY, DR GARCIA Consulting Unavailable KIMMY, DR GARCIA Primary Care Unavailable Jose Oneal Primary Care Physician [phone] MD Roel Christopher Attending Provider Roel Christopher Attending Unavailable Ashwin, Roel Man Admitting Unavailable ASHWIN, Roel Man Attending Unavailable Jose Oneal Referring Unavailable KATHRYNL, Roel Man Attending Unavailable Roel CHRISTOPHER Attending Unavailable Allergies Allergy Classification Reported Allergen(s) Allergy Type Date of Onset Reaction(s) Facility (1 source) No Known Medication Allergies; Translations: [No Known Medication Allergies] Propensity to adverse reactions (disorder) [facility] Repository Medications Current Medications Medication [...] day(s), # 5 tab(s), Refills(s) 0, Pharmacy: [facility], 175.2, cm, 11/20/23 13:23:00 EDT, Height/Length [...] Reference Range Facility Ambulatory Visit Summaryon 0 12-19-2023 Ambulatory Visit Summary Ambulatory Visit Summary CASTILLO DOMINGUEZ :1955 Visit Date:12/19/2023 Ambulatory Visit Instructions Your Diagnosis Epidermal cyst Your Care Team Attending Physician - ASHWIN HENDERSON, Roel Man Primary Care Physician - Kimmy HENDERSON, Jose This Is Your Medications List Contact prescribing physician if questions or concerns amlodipine-benazepr il (amLODIPine-benazep ril 10mg-40 mg Cap) esomeprazole (Nexium 20 mg Cap-DR) metformin (metformin 500 mg Tab) Procedures Performed Excision of cyst (12/05/2023), Cataract extraction, Colonoscopy, Repair of left inguinal hernia, Repair of meniscus, Repair of right inguinal hernia, Rotator cuff repair, Vasectomy. Medications What How Much When Instructions Unchanged [...] receiving treatment for. BMI 29.0-29.9,adult Diabetes mellitus Epidermal cyst Gastroesophageal reflux disease HTN (hypertension) Hypercholesterolemi a Infected sebaceous cyst Overweight Patient Survey You may receive a survey via text or e-mail asking about your office visit. Please share your experience with us by completing your survey. We appreciate your feedback and thank you for choosing us for your care. Tenzin [facility] General Surgery Office/Clini c Noteon 12-19-2023 General Surgery Office/Clinic Note General Surgery Office/Clinic Note Chief Complaint post operative follow up HPI Staff 14 day post operative follow up post excisional biopsy epidermal cyst mid and left upper back x 3. Denies discomfort, bleeding or drainage. Reports mild itching. Sutures intact. History of Present Illness 2 weeks s/p excisional biopsy large epidermal cyst mid back, and 2 smaller epidermal cysts; pathology consistent with epidermal cysts; mild itching and soreness, no drainage. Review of Systems ROS - Provider Constitutional: no fever, no sweats, no weight loss. Eyes: no glasses, no blurred vision, no visual loss. [...] weakness. Skin: no changing moles, no rash, no skin lumps. Neurologic: no seizures, no epilepsy, no headache. Psychiatric: no emotional or psychiatric problem. Heme/Lymph: no bleeding problems, no anemia, no blood clots, no transfusions. Allergy/Immunologic : no swollen lymph nodes/glands, no IV drug abuse. Other: Additional ROS info: Except as noted in the above Review of Systems and in the History of Present Illness, all other systems have been reviewed and are negative or noncontributory. Physical Exam skin: incisions healing well, erythema around sutures, no drainage or fluctuance. Assessment/Plan 1. Epidermal cyst (L72.0: Epidermal cyst) doing well, sutures removed; call with problems/questions. Follow-up No qualifying data available Problem List/Past Medical History Ongoing BMI 29.0-29.9,adult Diabetes mellitus Epidermal cyst Gastroesophageal reflux disease HTN (hypertension) Hypercholesterolemi a Infected sebaceous cyst Overweight Historical No qualifying data Procedure/Surgical History Excision of cyst (12/05/2023), Cataract extraction, Colonoscopy, Repair of left inguinal hernia, Repair of meniscus, Repair of right inguinal hernia, Rotator cuff repair, Vasectomy. Medications amLODIPine-benazepr il 10mg-40 mg Cap, 1 cap(s), Oral, Daily metformin 500 mg Tab, 500 [...] TPV60 SARS-CoV-2 (COVID-19) mRNA-1273 vaccine 06/08/2020 Recorded Normal [facility] Comment on above: Result Comment: Elec tronically Signed By: ASHWIN HENDERSON, Roel Man\.br\Date and Time Signed: 12/19/23 15:24 EDT Florian 12-05-2023 L Specimen: [id number] Received: 12/06/23 Status: ERNA Li Num: [id number] Spec Type: Surgical Subm Dr: Roel Christopher MD FACS Tissues: A Skin Cyst (L MID BACK EPIDERMAL CYST) B Skin Cyst (L UPPER BACK EPIDERMAL CYST ) Procedures: HE/2, Gross/Micro L3/2 Age/ Patient Sex Location Account Attending Physician Castillo Dominguez 68/M LABELL [id number] Roel Christopher MD FACS SPEC NUM: [id number] RECD: 12/06/23 STATUS: RENA LI NUM: [id number] CRISTINA: 12/05/23-[address]: Roel Christopher MD FACS ENTERED: 12/06/[address]: Alexei Elias SPEC TYPE: Surgical DEPT: [facility] ENTERED BY: [id number] RECV BY: [id number] ORDERED: HE/2, Gross/Micro L3/2 ORDERED: HE/2, Gross/Micro L3/2 Pathological Diagnosis A, skin, left mid back, excision: -Large benign epidermal inclusion cyst without malignancy or squamous atypia B, skin, left upper back, excisions X2: -Fragments of large benign epidermal inclusion cysts or sebaceous cysts with apparent chronic ruptures and patchy markedly associated acute and chronic inflammation, and abscess degenerations -No evidence of malignancy or squamous dysplasia identified Clinical Information Enlarging epidermal cyst on back x 3 Gross Description Part a was received in formalin with the patient's name and left mid back epidermal cyst and consists of a unoriented victoria-pink ellipse of skin measuring 3.6 x 0.8 and excised to a depth of 1.1 cm. There is a disrupted cystic structure in the subcutaneous tissue measuring 1.3 x 0.7 x 0.4 cm. The specimen is serially sectioned revealing white fibrous tissue. The specimen is entirely submitted in cassette A1. Part B is received in formalin with the patient's name and left upper back epidermal cyst x 2 the specimen consists of 2 unoriented skin ellipses measuring 2.0 and 3.0 cm in greatest dimension. Also received in the same container are multiple friable portions of an apparent Specimen: [id number] Received: 12/06/23 Status: ERNA Guillermo Num: [id number] Spec Type: Surgical Subm Dr: Roel Christopher MD FACS Tissues: A Skin Cyst (L MID BACK EPIDERMAL CYST) B Skin Cyst (L UPPER BACK EPIDERMAL CYST ) Procedures: HE/Sanaz, Gross/Micro L3/2 Patient: Castillo Dominguez [id number] (Continued) Specimen: [id number] Received: 12/06/23 (Continued) Gross Description (Continued) Signed (signatur e on file) Wang So MD 12/11/232010 Specimen: [id number] Received: 12/06/23 Status: ERNA Guillermo Num: [id number] Spec Type: Surgical Subm Dr: Roel Christopher MD FACS Tissues: A Skin Cyst (L MID BACK EPIDERMAL CYST) B Skin Cyst (L UPPER BACK EPIDERMAL CYST ) Procedures: HE/Sanaz, Gross/Micro L3/2 Patient: Castillo Dominguez [id number] (Continued) Specimen: [id number] Received: 12/06/23 (Continued) Gross Description (Continued) ruptured cyst measuring 3.0 x 2.0 x 1.0 cm in aggregate. The specimen is serially sectioned. Spring [employer] sections are submitted in cassette B1. DM Microscopic Description Microscopic examinations are performed supporting the above interpretation CPT Codes 76250d8 Specimen: [id number] Received: 12/06/23 Status: ERNA Guillermo Num: [id number] Spec Type: Surgical Subm Dr: Roel Christopher MD FACS Tissues: A Skin Cyst (L MID BACK EPIDERMAL CYST) B Skin Cyst (L UPPER BACK EPIDERMAL CYST ) Procedures: HE/Sanaz, Gross/Micro L3/2 Patient: Castillo Dominguez [id number] (Continued) Signed (signatur e on file) Wang So MD 12/11/232010 Normal [facility] Ambulatory Visit Summaryon 0 11-20-2023 Ambulatory Visit Summary Ambulatory Visit Summary CASTILLO DOMINGUEZ :1955 Visit Date:11/20/2023 Ambulatory Visit Instructions Your Care Team Attending Physician - ASHWIN HENDERSON, Roel Man Primary Care Physician - iKmmy HENDERSON, Jose Referring Physician - Jose Oneal MD This [...] for choosing us for your care. Normal [facility] Covid-19 PCR (CVDTBH)on 11-01 SARS-CoV-2 (COVID-19) RNA VICKY+probe Ql (Unsp spec) Not detected Normal NOT DETECTED [facility] Comment on above: Result Comment: This test is not yet approved or cleared by the [place] FDA. When there are no FDA-approved or cleared tests available, and other criteria are met, FDA can make tests available under an emergency access mechanism called an Emergency Use Authorization (EUA). The EUA for this test is supported by the [place] of Health and Human Service's (HHS's) declaration [...] U NATALIE, TSH, T7, CMP, LIPID #### [facility] [address] [address] [address] Ines So MRI KNEE LT WO [...] JANINE GRAYSON Date: 2021-07-18 11:35 Normal [facility] INSULINon 06-08-2021 Insulin 12.3 uIU/mL Normal 2.6-24.9 [facility] Comment on above: Performed By: #### I NSULIN #### [facility] [address] [place] [address] Dr. Ines So CBC AUTO DIFFon 06-06-2021 BASO # 0.1 103/ul Normal 0.0-0.1 [facility] Comment on above: Performed By: #### C BC #### [facility] [address] [place] [address] Dr. Ines So Basophils/100 WBC (Bld) 0.5 % Normal 0.2-2.0 [facility] Comment on above: Performed By: #### C BC #### [facility] [address] [place] [address] Dr. Ines So EO # 0.1 103/ul Normal 0.0-0.7 [facility] Comment on above: Performed By: #### C BC #### [facility] [address] [place] [address] Dr. Ines So Eosinophils/100 WBC (Bld) 0.5 % Critically low 0.9-7.0 [facility] Comment on above: Performed By: #### C BC #### [facility] [address] [place] [address] Dr. Ines So Erythrocyte distribution width (RBC) [Ratio] 13.2 % Normal 11.0-15.0 [facility] Comment on above: Performed By: #### C BC #### [facility] [address] [place] [address] Dr. Ines So Hematocrit (Bld) [Volume fraction] 45.9 % Normal 42.0-54.0 [facility] Comment on above: Performed By: #### C BC #### [facility] [address] [address] [address] Ines So Hemoglobin (Bld) [Mass/Vol] 14.9 g/dL Normal 14.0-18.0 [facility] Comment on above: Performed By: #### C BC #### [facility] [address] [address] [address] Ines So IG # 0.08 10e3/ul Critically high 0.00-0.03 [facility] Comment on above: Performed By: #### C BC #### [facility] [address] [place] [address] Dr. Ines So IG % 0.4 % Normal 0.0-0.5 [facility] Comment on above: Performed By: #### C BC #### [facility] [address] [place] [address] Dr. Ines So LYMPH # 0.9 103/ul Critically low 1.2-3.8 [facility] Comment on above: Performed By: #### C BC #### [facility] [address] [place] [address] Dr. Ines So Lymphocytes/100 WBC (Bld) 4.7 % Critically low 20.5-60.0 [facility] Comment on above: Performed By: #### C BC #### [facility] [address] [place] [address] Dr. Ines So MANUAL DIFF REQ NO Normal [facility] Comment on above: Performed By: #### C BC #### [facility] [address] [place] [address] Dr. Ines So MCH (RBC) [Entitic mass] 28.8 pg Normal 25.9-34.0 [facility] Comment on above: Performed By: #### C BC #### [facility] [address] [place] [address] Dr. Ines So MCHC (RBC) [Mass/Vol] 32.5 g/dL Normal 29.9-35.2 [facility] Comment on above: Performed By: #### C BC #### [facility] [address] [address] [address] Ines So MCV (RBC) [Entitic vol] 88.6 fL Normal 80.0-94.0 [facility] Comment on above: Performed By: #### C BC #### [facility] [address] [address] [address] Ines So MONO # 0.9 103/ul Critically high 0.3-0.8 [facility] Comment on above: Performed By: #### C BC #### [facility] [address] [address] [address] Ines So Monocytes/100 WBC (Bld) 4.9 % Normal 1.7-12.0 [facility] Comment on above: Performed By: #### C BC #### [facility] [address] [address] [address] Ines So NEUT # 16.2 103/ul Critically high 1.4-6.5 [facility] Comment on above: Performed By: #### C BC #### [facility] [address] [address] [address] Ines So Neutrophils/100 WBC (Bld) 89.0 % Critically high 43.0-75.0 [facility] Comment on above: Performed By: #### C BC #### [facility] [address] [address] [address] Ines So Platelet mean volume (Bld) [Entitic vol] 10.6 fL Normal 9.5-13.5 [facility] Comment on above: Performed By: #### C BC #### [facility] [address] [address] [address] Ines So PLT 202 103/ul Normal 150-450 [facility] Comment on above: Performed By: #### C BC #### [facility] [address] [address] [address] Ines So RBC 5.18 106/ul Normal 4.70-6.10 [facility] Comment on above: Performed By: #### C BC #### [facility] [address] [address] [address] Ines So WBC 18.2 103/ul Critically high 4.0-11.0 [facility] Comment on above: Performed By: #### C BC #### [facility] [address] [address] [address] Ines So FREE THYROXINE INDEX T7on FTI 2.75 Normal [facility] Comment on above: Performed By: #### U NATALIE, TSH, T7, CMP, LIPID #### [facility] [address] [address] [address] Ines So T3U 34.0 % Normal 23.5-40.5 [facility] Comment on above: Performed By: #### U NATALIE, TSH, T7, CMP, LIPID #### [facility] [address] [place] [address] Dr. Ines So T4 [Mass/Vol] 8.10 ug/dL Normal 5.53-11.00 [facility] Comment on above: Performed By: #### U NATALIE, TSH, T7, CMP, LIPID #### [facility] [address] [address] [address] Ines So GLYCOHEMOGLOBIN A1Con 2021 ADA RECOMMENDATION ADA THERAPEUTIC TARGET 6.0 - 7.0 ACTION SUGGESTED > 7.0 Normal [facility] Comment on above: Performed By: #### A 1C #### [facility] [address] [address] [address] Ines So Glucose [Mass/Vol] 137 mg/dL Normal [facility] Comment on above: Performed By: #### A 1C #### [facility] [address] [address] [address] Ines So HbA1c (Bld) [Mass fraction] 6.4 % Critically high <=6.0 [facility] Comment on above: Performed By: #### A 1C #### [facility] [address] [address] [address] Ines So LIPID PROFILEon 06-06-2021 CHOL-HDL RATIO NORM SEE BELOW Normal [facility] Comment on above: Result Comment: 3.3 - 4.4 LOW RISK 4.4 - 7.1 AVERAGE RISK 7.1 - 11.0 MODERATE RISK >11.0 HIGH RISK Performed By: #### U NATALIE, TSH, T7, CMP, LIPID #### [facility] [address] [address] [address] Ines So Cholesterol [Mass/Vol] 191 mg/dL Normal <=200 [facility] Comment on above: Performed By: #### U NATALIE, TSH, T7, CMP, LIPID #### [facility] [address] [address] [address] Ines So Cholesterol in HDL [Mass/Vol] 56 mg/dL Normal [facility] Comment on above: Performed By: #### U NATALIE, TSH, T7, CMP, LIPID #### [facility] [address] [place] [address] Dr. Ines So Cholesterol in LDL [Mass/Vol] 116.2 mg/dL Normal [facility] Comment on above: Performed By: #### U NATALIE, TSH, T7, CMP, LIPID #### [facility] [address] [address] [address] Ines So Cholesterol.total/Ch olesterol in HDL [Mass ratio] 3.4 {ratio} Normal [facility] Comment on above: Performed By: #### U NATALIE, TSH, T7, CMP, LIPID #### [facility] [address] [address] [address] Ines So HDL NORMAL > or = 60 mg/dl - LOW CARDIOVASCULAR RISK <40 mg/dl - HIGH CARDIOVASCULAR RISK Normal [facility] Comment on above: Performed By: #### U NATALIE, TSH, T7, CMP, LIPID #### [facility] [address] [place] [address] Dr. Ines So LDL CALC NORMAL SEE BELOW Normal [facility] Comment on above: Result Comment: <100 mg/dl OPTIMAL 100 - 129 mg/dl NEAR OR ABOVE OPTIMAL 130 - 159 mg/dl BORDERLINE HIGH 160 - 189 mg/dl HIGH >190 mg/dl VERY HIGH Performed By: #### U NATALIE, TSH, T7, CMP, LIPID #### [facility] [address] [address] [address] Ines So Triglyceride [Mass/Vol] 94 mg/dL Normal <=150 [facility] Comment on above: Performed By: #### U NATALIE, TSH, T7, CMP, LIPID #### [facility] [address] [address] [address] Ines So VLDL CALC 18.8 mg/dL Normal [facility] Comment on above: Performed By: #### U NATALIE, TSH, T7, CMP, LIPID #### [facility] [address] [address] [address] Ines So PROF 14(COMP METB)on 022 Albumin [Mass/Vol] 3.8 g/dL Normal 3.5-5.0 [facility] Comment on above: Performed By: #### U NATALIE, TSH, T7, CMP, LIPID #### [facility] [address] [place] [address] Dr. Ines So Albumin/Globulin [Mass ratio] 1.2 {ratio} Normal [facility] Comment on above: Performed By: #### U NATALIE, TSH, T7, CMP, LIPID #### [facility] [address] [place] [address] Dr. Ines So ALP [Catalytic activity/Vol] 80 U/L Normal 38-126 [facility] Comment on above: Performed By: #### U NATALIE, TSH, T7, CMP, LIPID #### [facility] [address] [address] [address] Ines So ALT [Catalytic activity/Vol] 27 U/L Normal 21-72 [facility] Comment on above: Performed By: #### U NATALIE, TSH, T7, CMP, LIPID #### [facility] [address] [place] [address] Dr. Ines So Anion gap [Moles/Vol] 9.6 mmol/L Normal [facility] Comment on above: Performed By: #### U NATALIE, TSH, T7, CMP, LIPID #### [facility] [address] [place] [address] Dr. Ines So AST [Catalytic activity/Vol] 14 U/L Critically low 17-59 [facility] Comment on above: Performed By: #### U NATALIE, TSH, T7, CMP, LIPID #### [facility] [address] [address] [address] Ines So Bilirubin [Mass/Vol] 1.2 mg/dL Normal 0.2-1.3 [facility] Comment on above: Performed By: #### U NATALIE, TSH, T7, CMP, LIPID #### [facility] [address] [address] [address] Ines So Calcium [Mass/Vol] 9.0 mg/dL Normal 8.4-10.[address] [facility] Comment on above: Performed By: #### U NATALIE, TSH, T7, CMP, LIPID #### [facility] [address] [address] [address] Ines So Chloride [Moles/Vol] 105 mmol/L Normal 98-107 [facility] Comment on above: Performed By: #### U NATALIE, TSH, T7, CMP, LIPID #### [facility] [address] [address] [address] Ines So CO2 [Moles/Vol] 27.4 mmol/L Normal 22.0-30.0 [facility] Comment on above: Performed By: #### U NATALIE, TSH, T7, CMP, LIPID #### [facility] [address] [address] [address] Ines So Creatinine [Mass/Vol] 1.07 mg/dL Normal 0.66-1.25 [facility] Comment on above: Performed By: #### U NATALIE, TSH, T7, CMP, LIPID #### [facility] [address] [address] [address] Ines So EGFR-AF URUGUAYAN >60 Normal >=60 [facility] Comment on above: Performed By: #### U NATALIE, TSH, T7, CMP, LIPID #### [facility] [address] [address] [address] Ines So EGFR-NON AF URUGUAYAN >60 Normal >=60 [facility] Comment on above: Performed By: #### U NATALIE, TSH, T7, CMP, LIPID #### [facility] [address] [address] [address] Ines So Globulin (S) [Mass/Vol] 3.3 g/dL Normal [facility] Comment on above: Performed By: #### U NATALIE, TSH, T7, CMP, LIPID #### [facility] [address] [address] [address] Ines So Glucose [Mass/Vol] 136 mg/dL Critically high 74-106 T [facility] Comment on above: Performed By: #### U NATALIE, TSH, T7, CMP, LIPID #### [facility] [address] [place] [address] Dr. Ines So Potassium [Moles/Vol] 4.0 mmol/L Normal 3.4-5.0 [facility] Comment on above: Performed By: #### U NATALIE, TSH, T7, CMP, LIPID #### [facility] [address] [address] [address] Ines So Protein [Mass/Vol] 7.1 g/dL Normal 6.1-8.[address] [facility] Comment on above: Performed By: #### U NATALIE, TSH, T7, CMP, LIPID #### [facility] [address] [place] [address] Dr. Ines So Sodium [Moles/Vol] 138 mmol/L Normal 137-[address] [facility] Comment on above: Performed By: #### U NATALIE, TSH, T7, CMP, LIPID #### [facility] [address] [place] [address] Dr. Ines So Urea nitrogen [Mass/Vol] 18.0 mg/dL Normal 9.0-20.0 [facility] Comment on above: Performed By: #### U NATALIE, TSH, T7, CMP, LIPID #### [facility] [address] [place] [address] Dr. Ines So Urea nitrogen/Creatinine [Mass ratio] 16.8 mg/mg Normal [facility] Comment on above: Performed By: #### U NATALIE, TSH, T7, CMP, LIPID #### [facility] [address] [place], [place] [address] Dr. Ines So TSHon 06-06-2021 TSH 0.735 uIU/mL Normal 0.470-4.680 [facility] Comment on above: Performed By: #### U NATALIE, TSH, T7, CMP, LIPID #### [facility] [address] [place], [place] [address] Dr. Ines So TSH RANGE SEE BELOW Normal [facility] Comment on above: Result Comment: <0.3 4 UIU/ml HYPERTHYROID 0.34-5.60 UIU/ml EUTHYROID >5.60 UIU/ml HYPOTHYROID Performed By: #### U NATALIE, TSH, T7, CMP, LIPID #### [facility] [address] [place], [place] [address] Dr. Ines So URIC ACID SERUMon 06-06-2021 Urate [Mass/Vol] 5.6 mg/dL Normal 3.5-8.5 [facility] Comment on above: Performed By: #### U NATALIE, TSH, T7, CMP, LIPID #### [facility] [address] [place], [place] [address] Dr. Ines So XR knee LT 4V*on 03-22-2021 XR knee LT 4V* [facility] [employer] Other XR knee LT 4V* [facility] [employer] Other XR knee LT 4V* [address] [place] [address] [employer] Other XR knee LT 4V* [place] [address] No [facility] [employer] Other XR knee LT 4V* XRay Report [employer] Other XR knee LT 4V* Signed [employer] Other XR knee LT 4V* Patient: Castillo Dominguez MR#: [id number] [place] [employer] Other XR knee LT 4V* 4087 [employer] Other XR knee LT 4V* : 1955 Acct:[id number] [employer] Other XR knee LT 4V* Age/Sex: 65 / M ADM Date: 03/22/21 [employer] Other XR knee LT 4V* Loc: [facility] Room: Type: REG CLI [employer] Other XR knee LT 4V* Attending Dr: Dolly NELSON [employer] Other XR knee LT 4V* Ordering Provider: LESLIE Cast [employer] Other XR knee LT 4V* Date of Service: 03/22/21 [employer] Other XR knee LT 4V* XR/XR knee LT 4V*: Acute pain of left knee [employer] Other XR knee LT 4V* Copies to: LESLIE Cast [employer] Other XR knee LT 4V* 4 views LEFT knee plain film [employer] Other XR knee LT 4V* COMPARISON:None [employer] Other XR knee LT 4V* HISTORY:Medial LEFT knee pain. Injury. [employer] Other XR knee LT 4V* No fracture, dislocation or focal soft tissue abnormality seen. Small suprapatellar effusion [employer] Other XR knee LT 4V* present. [employer] Other XR knee LT 4V* XR/XR knee LT 4V* [facility] Other XR knee LT 4V* IMPRESSION:No acute findings [facility] Other XR knee LT 4V* Impression dictated by: Deandre Ring M.D.03/22/2021 3:02 PM [facility] Other XR knee LT 4V* Dictation Location: RADIO-PC-03 [facility] Other XR knee LT 4V* Transcribed By: PWS 03/22/21 1502 [facility] Other XR knee LT 4V* Dictated By: Deandre Ring DO 03/22/21 1500 [facility] Other XR knee LT 4V* Signed By: [employer] Other XR knee LT 4V* 03/22/21 1502 [facility] Other Vital Signs Date Time Vital Sign Value Performing Clinician Facility 11-20-2023 13:16-0400 Blood Pressure Location Roel [email or web address] 11-20-2023 13:16-0400 Diastolic blood pressure 72 mm[Hg] Roel NILL [facility] 11-20-2023 13:16-0400 Heart rate 72 /min Roel NILL [facility] 11-20-2023 13:16-0400 Respiratory rate 16 /min Roel NILL [facility] 11-20-2023 13:16-0400 Systolic blood pressure 120 mm[Hg] Roel NILL [facility] 03-22-2021 14:40-0500 Body height 177.8 cm Dolly Crawford Other [facility] Other 03-22-2021 14:40-0500 Body mass index (BMI) [Ratio] 29.7 kg/m2 Dolly Crawford Other [facility] Other 03-22-2021 14:40-0500 Body temperature 98.2 [degF] Dolly Crawford Other [facility] Other 03-22-2021 14:40-0500 Body weight 93.9 kg Dolly Crawford Other [facility] Other 03-22-2021 14:40-0500 Diastolic blood pressure 77 mm[Hg] Dolly Crawford Other [facility] Other 03-22-2021 14:40-0500 Respiratory rate 16 /min Dolly Crawford Other [facility] Other 03-22-2021 14:40-0500 SaO2% (BldA) [Mass fraction] 99 % Dolly Crawford Other [facility] Other 03-22-2021 14:40-0500 Systolic blood pressure 123 mm[Hg] Dolly Crawford Other [facility] Other Encounters Encounter Date Encounter Type Care Provider Facility Start: 12-19-2023 End: 12-19-2023 ambulatory Roel CHRISTOPHER Facility: [facility] Start: 12-05-2023 End: 12-05-2023 ambulatory Roel Christopher [facility] Work Phone: Start: 12-05-2023 End: 12-05-2023 Departed Referred MD Roel Christopher Work Phone: [facility] Start: 12-05-2023 End: 12-05-2023 ambulatory Roel CHRISTOPHER Facility:[id number] Start: 11-20-2023 End: 11-20-2023 ambulatory Jose Oneal Facility:[facility] Start: 11-20-2023 End: 11-20-2023 Patient encounter procedure Roel Magda NILL [facility] Start: 10-22-2023 ambulatory Roel KATHRYNL Facility:[facility] Start: 11-22-2021 End: 11-22-[address] JOSE ONEAL Facility:[facility] Start: 07-18-2021 End: 07-19-[address] JOSE ONEAL Facility:[facility] Start: 06-06-2021 End: 06-06-[address] JOSE ONEAL Facility:[facility] Start: 03-22-2021 End: 03-22-2021 ambulatory Dolly Crawford Other [facility] Other Start: 03-22-2021 Office outpatient ne w 20 minutes Dolly Crawford [facility] Procedures Date Procedure Procedure Detail Performing Clinician Start: 06-06-[address] MARINA ONEAL Comment on above: Performed By: #### [facility] #### [facility] [address] [place] [address] Dr. Ines So Colonoscopy Roel NILL Extraction of cataract Flakito munir PERALTAL Repair of left ingui nal hernia Roel NILL Repair of meniscus Roel N ITA Repair of musculoten dinous cuff of shoulder Roel NILL Repair of right ingu inal hernia Roel NILL Vasectomy Roel NILL Immunizations Immunization Date Immunization Notes Care Provider Fa capri 07-08-2020 SARS-CoV-2 (COVID-19 ) mRNA-1273 vaccine Roel NILL [facility] Comment on above: Result Comment: 2023: [id number] 06-08-2020 SARS-CoV-2 (COVID-19 ) mRNA-1273 vaccine Roel NILDavid [facility] Payers Date Payer Category Payer Medicare [id number] 2023 Unknown [id number] 2023 Unknown [id number] 1959 Private Health Insurance [id number] 1959 Self-pay 1955 Unknown [id number] 1955 Unknown [id number] 1955 Unknown [id number] 1955 Unknown [id number] 1955 Unknown [id number] 1955 Unknown [id number] Unknown Joe STEPHENS/RAVEN [id number] Unknown [id number] Social History Date Type Detail Facility Unknown if ever smoked [facility] Other Start: 11-20-2023 Tobacco smoking status Smokes tobacco daily (finding) [facility] Tobacco smoking status Never [facility] Sex Assigned At Male [facility] Start: 12-06-2023 [facility] Start: 1955 Sex Assigned At Male [facility] Functional Status Date Assessment Result Facility 11-20-2023 Functional Status N/A [facility] [place] Clinical Note 11-20-2023 Note Date & Type [...] day(s), # 5 tab(s), Refills(s) 0, Pharmacy: [facility], 175.2, cm, 11/20/23 13:23:00 EDT, Height/Length [...] [id number] SARS-CoV-2 (COVID-19) mRNA-1273 vaccine 06/08/2020 Recorded [facility] Comment on above: Result Comment: Elec tronically Signed By: ASHWIN HENDERSON, Roel Man\astrid\Date and Time Signed: 11/20/23 14:34 EDT Evaluation + Plan note Note Date & Type Note Facility Evaluation + Plan note No data available for this section [facility] Evaluation note Note Date & Type Note Facility Evaluation note [facility] [employer] Other Evaluation note Note Date & Type Note Facility Evaluation note No assessment information availa [facility] Work Phone: History general Narrative - Reported Note Date & Type Note Facility History general Narrative - Reported [facility] [employer] Other Hospital Discharge instructions Note Date & Type Note Facility Hospital Discharge instructions No data available for this section [facility] Progress note Note Date & Type Note Facility Progress note No data available for this section [facility] Summary Purpose Family History No Family History Records Found Relationship Condition Age at Onset Recorded Date/T mirlande mother Alzheimer's dementia Unknown Unknown Advance Directives No Advanced Directives Records Found Advance Directive Response Recorded Date/ Time Advance Directives No August 03, 2017 3:38pm Additional Source Comments (unrecognized sect ion and content) No Status Records FoundNo Status Records FoundNo Status Records Found INFORMATION SOURCE (unrecogn ized section and content) DATE CREATED AUTHOR 11/25/2021 [facility] DATE CREATED AUTHOR AUTHOR'S ORGANIZ ATION 12/13/2023 [facility] DATE CREATED AUTHOR AUTHOR'S ORGANIZ ATION 12/22/2023 [facility] Patient Care team informatio n (unrecognized section and content) Team Status: Inactive Member Role Status Dates Roel Christopher MD FACS Attending Provider Active Start: December 05, 2023 End: December 05, 2023 Goals (unrecognized section and content) Goals may be documented in a n alternate section FOR RECORDS PERTAINING TO PATIENTS WHO ARE [...] BE BASED ON THE PRIMARY CLINICAL RECORDS. [employer] [facility]. provides no warranty or guarantee of the accuracy or completeness of information in this document.
[2024-01-25 11:49] LABS: Estimated Average Glucose 128 mg/dL; Glycohemoglobin A1C 6.1 % (4.5-6.2)
== END 2024-01-25 10:59 | disposition home or self-care (01) ==
PROVIDERS: PCP Family Medicine; Visit Provider Family Medicine
DX: E11.9 Type 2 diabetes mellitus without complications (principal); I10 Essential (primary) hypertension
CPT/HCPCS: 36415; 83036

== ENCOUNTER 2025-01-07 08:30 | Outpatient (OUT) | payer MEDICARE, SELFPAY ==
--- OUTSIDE RECORDS SUMMARY | 2025-01-07 08:42 | XMS_ITS | CCD ---
Author Organization [facility] Care Team Providers Care Smoking Pipe Repairer Name Role Phone Dolly Crawford Unavailable KIMMY, [...] Care Unavailable Jose Oneal Primary Care Physician MD Roel Christopher Attending Provider Roel Christopher Attending Unavailable Ashwin, Roel Man Admitting Unavailable ASHWIN, Roel Man Attending Unavailable Jose Oneal Referring Unavailable KATHRYNL, Roel Man Attending Unavailable KATHRYNLRoel Attending Unavailable Allergies Allergy Classification Reported Allergen(s) Allergy Type Date of Onset Reaction(s) Facility (1 source) No Known Medication Allergies; Translations: [No Known Medication Allergies] Propensity to adverse reactions (disorder) [facility] Repository Medications Current Medications Medication Drug Class(es) Dates Sig (Normalized) Sig (Original) amLODIPine 10 mg / benazepril hydrochloride 40 mg oral capsule (2 sources) Dihydropyridine Calcium Channel Nam, Angiotensin Converting Enzyme Inhibitor Start: 10-24-2023 take 1 capsule by mouth once daily amLODIPine-benaz epril 10mg-40 mg Cap 1 cap(s), Oral, Daily, Refill(s) 0 Start Date: 10/24/23 Status: Ordered amLODIPine Besy-Benazepril HCl (1 source) Crutches Underarm Crutches (1 source) Start: 03-22-2021 esomeprazole 20 mg delayed release oral capsule (2 sources) Proton Pump Inhibitor Start: 10-24-2023 take 1 [...] day(s), # 5 tab(s), Refills(s) 0, Pharmacy: boarding pass #[id number], 175.2, cm, 11/20/23 13:23:00 EDT, Height/Length Dosing, 91.5, kg, 11/20/23 13:23:00 EDT, Weight Dosing Start Date: 11/20/23 Stop Date: 11/27/23 Status: Ordered metFORMIN hydrochloride 500 mg oral tablet (2 sources) Biguanide Start: 10-24-2023 take 1 tablet by mouth once daily metformin 500 mg Tab 500 mg = 1 tab(s), Oral, Daily, Refills(s) 0 Start Date: 10/24/23 Status: Ordered Problems Active Problems Problem Classification Problem Date Documented Da te Episodic/Chronic Diabetes mellitus without complication (6 sources) Type 2 diabetes mellitus without complications; Translations: [Diabetes mellitus] Onset: 06-06-2021 Chronic Disorders of lipid metabolism (3 sources) Pure hypercholesterolemi a, unspecified; Translations: [Hypercholesterolem ia] Onset: 06-07-2021 10-24-2023 Chronic Esophageal disorders (3 sources) Gastro-esophageal reflux disease without esophagitis; Translations: [Gastroesophageal reflux disease] Onset: 06-07-2021 10-24-2023 Chronic Essential hypertension (3 sources) Essential (primary) hypertension; Translations: [Hypertensive disorder] Onset: 06-07-2021 10-24-2023 Chronic Joint disorders and dislocations; trauma-related (4 sources) Unspecified internal derangement of left knee; Translations: [UNS INTERNAL DERANGEMENT LEFT KNEE] Onset: 07-18-2021 Chronic Other nutritional; endocrine; and metabolic disorders (2 sources) Overweight 11-20-2023 Episodic Other nutritional; endocrine; and metabolic disorders (2 sources) Overweight in adulthood with body mass index of 25 or more but less than 30 11-20-2023 Episodic Other skin disorders (1 source) Sebaceous cyst of skin; Translations: [Sebaceous cyst] Onset: 11-20-2023 Episodic Other skin disorders (2 sources) Epidermoid cyst; Translations: [Epidermal cyst] Onset: 11-20-2023 Episodic Other skin disorders (2 sources) Epidermoid cyst of skin 11-20-2023 Episodic Other skin disorders (2 sources) Infection of sebaceous cyst 11-20-2023 Episodic Other [...] for choosing us for your care. Tenzin [facility] General Surgery Office/Clini c Noteon 12-19-2023 General [...] SARS-CoV-2 (COVID-19) mRNA-1273 vaccine 06/08/2020 Recorded Normal [facility] Comment on above: Result Comment: Elec tronically Signed By: ASHWIN HENDERSON, Roel Man\.br\Date and Time Signed: 12/19/23 15:24 EDT Florian 12-05-2023 L Specimen: [id number] Received: 12/06/23 Status: ERNA Li Num: [id number] Spec Type: Surgical Subm Dr: Roel Christopher MD FACS Tissues: A Skin Cyst (L MID BACK EPIDERMAL CYST) B Skin Cyst (L UPPER BACK EPIDERMAL CYST ) Procedures: HE/2, Gross/Micro L3/2 Age/ Patient Sex Location Account Attending Physician Castillo Dominguez 68/M LABELL [id number] Roel Christopher MD FACS SPEC NUM: [id number] RECD: 12/06/23 STATUS: ERNA LI NUM: [id number] CRISTINA: 12/05/23-[address]: Roel Christopher MD FACS ENTERED: 12/06/[address] [facility] [address]: Alexei Elias SPEC TYPE: Surgical DEPT: S[facility] [place] ENTERED BY: [id number] RECV BY: [id number] ORDERED: HE/2, Gross/Micro L3/2 ORDERED: HE/2, Gross/Micro [...] multiple friable portions of an apparent Specimen: [id number] Received: 12/06/23 Status: ERNA Guillermo Num: [id number] Spec Type: Surgical Subm Dr: Roel Christopher MD FACS Tissues: A Skin Cyst (L MID BACK EPIDERMAL CYST) B Skin Cyst (L UPPER BACK EPIDERMAL CYST ) Procedures: HE/Sanaz, Gross/Micro L3/2 Patient: Castillo Dominguez [id number] (Continued) Specimen: [id number] Received: 12/06/23 (Continued) Gross Description (Continued) Signed (signatur e on file) Wang So MD 12/11/232010 Specimen: [id number] Received: 12/06/23 Status: ERNA Guillermo Num: [id number] Spec Type: Surgical Subm Dr: Roel Christopher MD FACS Tissues: A Skin Cyst (L MID BACK EPIDERMAL CYST) B Skin Cyst (L UPPER BACK EPIDERMAL CYST ) Procedures: HE/Sanaz, Gross/Micro L3/2 Patient: Castillo Dominguez [id number] (Continued) Specimen: [id number] Received: 12/06/23 (Continued) Gross Description (Continued) ruptured cyst measuring 3.0 x 2.0 x 1.0 cm in aggregate. The specimen is serially sectioned. Welt Treater sections are submitted in cassette B1. DM Microscopic Description Microscopic examinations are performed supporting the above interpretation CPT Codes 01405b1 Specimen: [id number] Received: 12/06/23 Status: ERNA Guillermo Num: [id number] Spec Type: Surgical Subm Dr: Roel Christopher MD FACS Tissues: A Skin Cyst (L MID BACK EPIDERMAL CYST) B Skin Cyst (L UPPER BACK EPIDERMAL CYST ) Procedures: HE/Sanaz, Gross/Micro L3/2 Patient: Castillo Dominguez [id number] (Continued) Signed (signatur e on file) Wang So MD 12/11/232010 Normal [facility] Ambulatory Visit Summaryon 0 11-20-2023 Ambulatory Visit Summary Ambulatory Visit Summary CASTILLO DOMINGUEZ :1955 Visit Date:11/20/2023 Ambulatory Visit Instructions Your Care Team Attending Physician - ASHWIN HENDERSON, Roel Man Primary Care Physician - Kimmy HENDERSON, Jose Referring Physician - Jose Oneal [...] for choosing us for your care. Normal [facility] Covid-19 PCR (CVDTBH)on 11-01 SARS-CoV-2 (COVID-19) RNA VICKY+probe Ql (Unsp spec) Not detected Normal NOT DETECTED [facility] Comment on above: Result Comment: This test is not yet approved or cleared by the [place] FDA. When there are no FDA-approved or cleared tests available, and other criteria are met, FDA can make tests available under an emergency access mechanism called an Emergency Use Authorization (EUA). The EUA for this test is supported by the [place] of Health and Human Service's (HHS's) declaration [...] TSH, T7, CMP, LIPID #### [facility] [address] [address] [address] Ines So MRI KNEE LT WO [...] JANINE GRAYSON Date: 2021-07-18 11:35 Normal [facility] INSULINon 06-08-2021 Insulin 12.3 uIU/mL Normal 2.6-24.9 [facility] Comment on above: Performed By: #### I NSULIN #### [facility] [address] [place] [address] Dr. Ines So CBC AUTO DIFFon 06-06-2021 BASO # 0.1 103/ul Normal 0.0-0.1 [facility] Comment on above: Performed By: #### C BC #### [facility] [address] [place] [address] Dr. Ines So Basophils/100 WBC (Bld) 0.5 % Normal 0.2-2.0 [facility] Comment on above: Performed By: #### C BC #### [facility] [address] [place] [address] Dr. Ines So EO # 0.1 103/ul Normal 0.0-0.7 [facility] Comment on above: Performed By: #### C BC #### [facility] [address] [place] [address] Dr. Ines So Eosinophils/100 WBC (Bld) 0.5 % Critically low 0.9-7.0 [facility] Comment on above: Performed By: #### C BC #### [facility] [address] [place] [address] Dr. Ines So Erythrocyte distribution width (RBC) [Ratio] 13.2 % Normal 11.0-15.0 [facility] Comment on above: Performed By: #### C BC #### [facility] [address] [place] [address] Dr. Ines So Hematocrit (Bld) [Volume fraction] 45.9 % Normal 42.0-54.0 [facility] Comment on above: Performed By: #### C BC #### [facility] [address] [address] [address] Ines So Hemoglobin (Bld) [Mass/Vol] 14.9 g/dL Normal 14.0-18.0 [facility] Comment on above: Performed By: #### C BC #### [facility] [address] [address] [address] Ines So IG # 0.08 10e3/ul Critically high 0.00-0.03 [facility] Comment on above: Performed By: #### C BC #### [facility] [address] [place] [address] Dr. Ines So IG % 0.4 % Normal 0.0-0.5 [facility] Comment on above: Performed By: #### C BC #### [facility] [address] [place] [address] Dr. Ines So LYMPH # 0.9 103/ul Critically low 1.2-3.8 [facility] Comment on above: Performed By: #### C BC #### [facility] [address] [place] [address] Dr. Ines So Lymphocytes/100 WBC (Bld) 4.7 % Critically low 20.5-60.0 [facility] Comment on above: Performed By: #### C BC #### [facility] [address] [place] [address] Dr. Ines So MANUAL DIFF REQ NO Normal [facility] Comment on above: Performed By: #### C BC #### [facility] [address] [place] [address] Dr. Ines So MCH (RBC) [Entitic mass] 28.8 pg Normal 25.9-34.0 [facility] Comment on above: Performed By: #### C BC #### [facility] [address] [place] [address] Dr. Ines So MCHC (RBC) [Mass/Vol] 32.5 g/dL Normal 29.9-35.2 [facility] Comment on above: Performed By: #### C BC #### [facility] [address] [address] [address] Ines So MCV (RBC) [Entitic vol] 88.6 fL Normal 80.0-94.0 [facility] Comment on above: Performed By: #### C BC #### [facility] [address] [address] [address] Ines So MONO # 0.9 103/ul Critically high 0.3-0.8 [facility] Comment on above: Performed By: #### C BC #### [facility] [address] [address] [address] Ines So Monocytes/100 WBC (Bld) 4.9 % Normal 1.7-12.0 [facility] Comment on above: Performed By: #### C BC #### [facility] [address] [address] [address] Ines So NEUT # 16.2 103/ul Critically high 1.4-6.5 [facility] Comment on above: Performed By: #### C BC #### [facility] [address] [address] [address] Ines So Neutrophils/100 WBC (Bld) 89.0 % Critically high 43.0-75.0 [facility] Comment on above: Performed By: #### C BC #### [facility] [address] [address] [address] Ines So Platelet mean volume (Bld) [Entitic vol] 10.6 fL Normal 9.5-13.5 [facility] Comment on above: Performed By: #### C BC #### [facility] [address] [address] [address] Ines So PLT 202 103/ul Normal 150-450 [facility] Comment on above: Performed By: #### C BC #### [facility] [address] [address] [address] Ines So RBC 5.18 106/ul Normal 4.70-6.10 [facility] Comment on above: Performed By: #### C BC #### [facility] [address] [address] [address] Ines So WBC 18.2 103/ul Critically high 4.0-11.0 [facility] Comment on above: Performed By: #### C BC #### [facility] [address] [address] [address] Ines So FREE THYROXINE INDEX T7on FTI 2.75 Normal [facility] Comment on above: Performed By: #### U NATALIE, TSH, T7, CMP, LIPID #### [facility] [address] [address] [address] Ines So T3U 34.0 % Normal 23.5-40.5 [facility] Comment on above: Performed By: #### U NATALIE, TSH, T7, CMP, LIPID #### [facility] [address] [place] [address] Dr. Ines So T4 [Mass/Vol] 8.10 ug/dL Normal 5.53-11.00 [facility] Comment on above: Performed By: #### U NATALIE, TSH, T7, CMP, LIPID #### [facility] [address] [address] [address] Ines So GLYCOHEMOGLOBIN A1Con 2021 ADA RECOMMENDATION ADA THERAPEUTIC TARGET 6.0 - 7.0 ACTION SUGGESTED > 7.0 Normal [facility] Comment on above: Performed By: #### A 1C #### [facility] [address] [address] [address] Ines So Glucose [Mass/Vol] 137 mg/dL Normal [facility] Comment on above: Performed By: #### A 1C #### [facility] [address] [address] [address] Ines So HbA1c (Bld) [Mass fraction] 6.4 % Critically high <=6.0 [facility] Comment on above: Performed By: #### A 1C #### [facility] [address] [address] [address] Ines So LIPID PROFILEon 06-06-2021 CHOL-HDL RATIO NORM SEE BELOW Normal [facility] Comment on above: Result Comment: 3.3 - 4.4 LOW RISK 4.4 - 7.1 AVERAGE RISK 7.1 - 11.0 MODERATE RISK >11.0 HIGH RISK Performed By: #### U NATALIE, TSH, T7, CMP, LIPID #### [facility] [address] [address] [address] Ines So Cholesterol [Mass/Vol] 191 mg/dL Normal <=200 [facility] Comment on above: Performed By: #### U NATALIE, TSH, T7, CMP, LIPID #### [facility] [address] [address] [address] Ines So Cholesterol in HDL [Mass/Vol] 56 mg/dL Normal [facility] Comment on above: Performed By: #### U NATALIE, TSH, T7, CMP, LIPID #### [facility] [address] [place] [address] Dr. Ines So Cholesterol in LDL [Mass/Vol] 116.2 mg/dL Normal [facility] Comment on above: Performed By: #### U NATALIE, TSH, T7, CMP, LIPID #### [facility] [address] [address] [address] Ines So Cholesterol.total/Ch olesterol in HDL [Mass ratio] 3.4 {ratio} Normal [facility] Comment on above: Performed By: #### U NATALIE, TSH, T7, CMP, LIPID #### [facility] [address] [address] [address] Ines So HDL NORMAL > or = 60 mg/dl - LOW CARDIOVASCULAR RISK <40 mg/dl - HIGH CARDIOVASCULAR RISK Normal [facility] Comment on above: Performed By: #### U NATALIE, TSH, T7, CMP, LIPID #### [facility] [address] [place] [address] Dr. nIes So LDL CALC NORMAL SEE BELOW Normal [facility] Comment on above: Result Comment: <100 mg/dl OPTIMAL 100 - 129 mg/dl NEAR OR ABOVE OPTIMAL 130 - 159 mg/dl BORDERLINE HIGH 160 - 189 mg/dl HIGH >190 mg/dl VERY HIGH Performed By: #### U NATALIE, TSH, T7, CMP, LIPID #### [facility] [address] [address] [address] Ines So Triglyceride [Mass/Vol] 94 mg/dL Normal <=150 [facility] Comment on above: Performed By: #### U NATALIE, TSH, T7, CMP, LIPID #### [facility] [address] [address] [address] Ines So VLDL CALC 18.8 mg/dL Normal [facility] Comment on above: Performed By: #### U NATALIE, TSH, T7, CMP, LIPID #### [facility] [address] [address] [address] Ines So PROF 14(COMP METB)on 022 Albumin [Mass/Vol] 3.8 g/dL Normal 3.5-5.0 [facility] Comment on above: Performed By: #### U NATALIE, TSH, T7, CMP, LIPID #### [facility] [address] [place] [address] Dr. Ines So Albumin/Globulin [Mass ratio] 1.2 {ratio} Normal [facility] Comment on above: Performed By: #### U NATALIE, TSH, T7, CMP, LIPID #### [facility] [address] [place] [address] Dr. Ines So ALP [Catalytic activity/Vol] 80 U/L Normal 38-126 [facility] Comment on above: Performed By: #### U NATALIE, TSH, T7, CMP, LIPID #### [facility] [address] [address] [address] Ines So ALT [Catalytic activity/Vol] 27 U/L Normal 21-72 [facility] Comment on above: Performed By: #### U NATALIE, TSH, T7, CMP, LIPID #### [facility] [address] [place] [address] Dr. Ines So Anion gap [Moles/Vol] 9.6 mmol/L Normal [facility] Comment on above: Performed By: #### U NATALIE, TSH, T7, CMP, LIPID #### [facility] [address] [place] [address] Dr. Ines So AST [Catalytic activity/Vol] 14 U/L Critically low 17-59 [facility] Comment on above: Performed By: #### U NATALIE, TSH, T7, CMP, LIPID #### [facility] [address] [address] [address] Ines So Bilirubin [Mass/Vol] 1.2 mg/dL Normal 0.2-1.3 [facility] Comment on above: Performed By: #### U NATALIE, TSH, T7, CMP, LIPID #### [facility] [address] [address] [address] Ines So Calcium [Mass/Vol] 9.0 mg/dL Normal 8.4-10.2 [facility] Comment on above: Performed By: #### U NATALIE, TSH, T7, CMP, LIPID #### [facility] [address] [address] [address] Ines So Chloride [Moles/Vol] 105 mmol/L Normal 98-107 [facility] Comment on above: Performed By: #### U NATALIE, TSH, T7, CMP, LIPID #### [facility] [address] [address] [address] Ines So CO2 [Moles/Vol] 27.4 mmol/L Normal 22.0-30.0 [facility] Comment on above: Performed By: #### U NATALIE, TSH, T7, CMP, LIPID #### [facility] [address] [address] [address] Ines So Creatinine [Mass/Vol] 1.07 mg/dL Normal 0.66-1.25 [facility] Comment on above: Performed By: #### U NATALIE, TSH, T7, CMP, LIPID #### [facility] [address] [address] [address] Ines So EGFR-AF KOSOVAN >60 Normal >=60 [facility] Comment on above: Performed By: #### U NATALIE, TSH, T7, CMP, LIPID #### [facility] [address] [address] [address] Ines So EGFR-NON AF KOSOVAN >60 Normal >=60 [facility] Comment on above: Performed By: #### U NATALIE, TSH, T7, CMP, LIPID #### [facility] [address] [address] [address] Ines So Globulin (S) [Mass/Vol] 3.3 g/dL Normal [facility] Comment on above: Performed By: #### U NATALIE, TSH, T7, CMP, LIPID #### [facility] [address] [address] [address] Ines So Glucose [Mass/Vol] 136 mg/dL Critically high 74-106 T [facility] Comment on above: Performed By: #### U NATALIE, TSH, T7, CMP, LIPID #### [facility] [address] [place] [address] Dr. Ines So Potassium [Moles/Vol] 4.0 mmol/L Normal 3.4-5.0 [facility] Comment on above: Performed By: #### U NATALIE, TSH, T7, CMP, LIPID #### [facility] [address] [address] [address] Ines So Protein [Mass/Vol] 7.1 g/dL Normal 6.1-8.2 [facility] Comment on above: Performed By: #### U NATALIE, TSH, T7, CMP, LIPID #### [facility] [address] [place] [address] Dr. Ines So Sodium [Moles/Vol] 138 mmol/L Normal 137-145 [facility] Comment on above: Performed By: #### U NATALIE, TSH, T7, CMP, LIPID #### [facility] [address] [place] [address] Dr. Ines So Urea nitrogen [Mass/Vol] 18.0 mg/dL Normal 9.0-20.0 [facility] Comment on above: Performed By: #### U NATALIE, TSH, T7, CMP, LIPID #### [facility] [address] [place] [address] Dr. Ines So Urea nitrogen/Creatinine [Mass ratio] 16.8 mg/mg Normal [facility] Comment on above: Performed By: #### U NATALIE, TSH, T7, CMP, LIPID #### [facility] [address], [place] [address] Dr. Ines So TSHon 06-06-2021 TSH 0.735 uIU/mL Normal 0.470-4.680 [facility] Comment on above: Performed By: #### U NATALIE, TSH, T7, CMP, LIPID #### [facility] [address], [place] [address] Dr. Ines So TSH RANGE SEE BELOW Normal [facility] Comment on above: Result Comment: <0.3 4 UIU/ml HYPERTHYROID 0.34-5.60 UIU/ml EUTHYROID >5.60 UIU/ml HYPOTHYROID Performed By: #### U NATALIE, TSH, T7, CMP, LIPID #### [facility] [address], [place] [address] Dr. Ines So URIC ACID SERUMon 06-06-2021 Urate [Mass/Vol] 5.6 mg/dL Normal 3.5-8.5 [facility] Comment on above: Performed By: #### U NATALIE, TSH, T7, CMP, LIPID #### [facility] [address] [place], [place] [address] Dr. Ines So XR knee LT 4V*on 03-22-2021 XR knee LT 4V* [facility] [employer] Other XR knee LT 4V* [facility] [employer] Other XR knee LT 4V* [address] [place] [address] [employer] Other XR knee LT 4V* [place] [address] No [facility] [employer] Other XR knee LT 4V* XRay Report [employer] Other XR knee LT 4V* Signed [employer] Other XR knee LT 4V* Patient: Castillo Dominguez MR#: [id number] [place] [employer] Other XR knee LT 4V* 8527 [employer] Other XR knee LT 4V* : 1955 Acct:[id number] [employer] Other XR knee LT 4V* Age/Sex: 65 / M ADM Date: 03/22/21 [employer] Other XR knee LT 4V* Loc: [facility] Room: Type: REG CLI [employer] Other XR knee LT 4V* Attending Dr: Dolly NELSON [employer] Other XR knee LT 4V* Ordering Provider: LESLIE Cast [employer] Other XR knee LT 4V* Date of Service: 03/22/21 [employer] Other XR knee LT 4V* XR/XR knee LT 4V*: Acute pain of left knee [employer] Other XR knee LT 4V* Copies to: LESLIE Cast [employer] Other XR knee LT 4V* 4 views LEFT knee plain film [employer] Other XR knee LT 4V* COMPARISON:None [employer] Other XR knee LT 4V* HISTORY:Medial LEFT knee pain. Injury. [employer] Other XR knee LT 4V* No fracture, dislocation or focal soft tissue abnormality seen. Small suprapatellar effusion [employer] Other XR knee LT 4V* present. [employer] Other XR knee LT 4V* XR/XR knee LT 4V* [employer] Other XR knee LT 4V* IMPRESSION:No acute findings [employer] Other XR knee LT 4V* Impression dictated by: Deandre Ring M.D.03/22/2021 3:02 PM [employer] Other XR knee LT 4V* Dictation Location: RADIO-PC-03 [employer] Other XR knee LT 4V* Transcribed By: PWS 03/22/21 1502 [employer] Other XR knee LT 4V* Dictated By: Deandre Ring DO 03/22/21 1500 [employer] Other XR knee LT 4V* Signed By: [employer] Other XR knee LT 4V* 03/22/21 1502 [employer] Other Vital Signs Date Time Vital Sign Value Performing Clinician Facility 11-20-2023 13:16-0400 Blood Pressure Location [facility] [employer] [facility] 11-20-2023 13:16-0400 Diastolic blood pressure 72 mm[Hg] Roel NILL [facility] 11-20-2023 13:16-0400 Heart rate 72 /min Roel NILL [facility] 11-20-2023 13:16-0400 Respiratory rate 16 /min Roel NILL [facility] 11-20-2023 13:16-0400 Systolic blood pressure 120 mm[Hg] Roel NILL [facility] 03-22-2021 14:40-0500 Body height 177.8 cm Dolly Crawford Other [employer] Other 03-22-2021 14:40-0500 Body mass index (BMI) [Ratio] 29.7 kg/m2 Dolly Crawford Other [employer] Other 03-22-2021 14:40-0500 Body temperature 98.2 [degF] Dolly Crawford Other [employer] Other 03-22-2021 14:40-0500 Body weight 93.9 kg Dolly Crawford Other [employer] Other 03-22-2021 14:40-0500 Diastolic blood pressure 77 mm[Hg] Dolly Crawford Other [employer] Other 03-22-2021 14:40-0500 Respiratory rate 16 /min Dolly Crawford Other [employer] Other 03-22-2021 14:40-0500 SaO2% (BldA) [Mass fraction] 99 % Dolly Crawford Other [employer] Other 03-22-2021 14:40-0500 Systolic blood pressure 123 mm[Hg] Dolly Crawford Other [employer] Other Encounters Encounter Date Encounter Type Care Provider Facility Start: 12-19-2023 End: 12-19-2023 ambulatory Roel CHRISTOPHER Facility:[facility] Start: 12-19-2023 End: 12-19-2023 Patient encounter procedure Roel CHRISTOPHER [facility] [place] Start: 12-05-2023 End: 12-05-2023 ambulatory Roel Christopher [facility] Work Phone: Start: 12-05-2023 End: 12-05-2023 Departed Referred MD Roel Christopher Work Phone: [facility] [place] [facility] Start: 12-05-2023 End: 12-05-2023 ambulatory Roel R KATHRYNL Facility:[id number] Start: 11-20-2023 End: 11-20-2023 ambulatory Jose Oneal Facility:[facility] Start: 11-20-2023 End: 11-20-2023 Patient encounter procedure Roel R NILL [facility] Start: 10-22-2023 ambulatory Roel CHRISTOPHER Facility:[facility] Start: 11-22-2021 End: 11-22-[address] JOSE ONEAL Facility:[facility] Start: 07-18-2021 End: 07-19-[address] JOSE ONEAL Facility:[facility] Start: 06-06-2021 End: 06-06-[address] JOSE ONEAL Facility:[facility] Start: 03-22-2021 End: 03-22-2021 ambulatory Dolly Crawford Other [employer] Other Start: 03-22-2021 Office outpatient ne w 20 minutes Dolly Crawford [facility] [place] Procedures Date Procedure Procedure Detail Performing Clinician Start: 12-05-2023 Excision of cyst Michae l NILL Comment on above: back x 3 Start: 06-06-[address] MARINA ONEAL Comment on above: Performed By: #### [facility] #### [facility] [address] [place] [address] Dr. Ines So Colonoscopy Roel NILL Extraction of cataract Flakito el NILL Repair of left ingui nal hernia Roel NILL Repair of meniscus Roel N ILL Repair of musculoten dinous cuff of shoulder Roel NILL Repair of right ingu inal hernia Roel NILL Vasectomy Roel NILL Immunizations Immunization Date Immunization Notes Care Provider Fa jessicaty 07-08-2020 SARS-CoV-2 (COVID-19 ) mRNA-1273 vaccine Roel CHRISTOPHER [facility] Comment on above: Result Comment: 2023: [id number] 06-08-2020 SARS-CoV-2 (COVID-19 ) mRNA-1273 vaccine Roel CHRISTOPHER [facility] Payers Date Payer Category Payer Medicare [id number] 2023 Unknown [id number] 2023 Unknown [id number] 1959 Private Health Insurance [id number] 1959 Self-pay 1955 Unknown [id number] 1955 Unknown [id number] 1955 Unknown [id number] 1955 Unknown [id number] 1955 Unknown [id number] 1955 Unknown [id number] Unknown Joe STEPHENS/RAVEN [id number] Unknown [id number] Social History Date Type Detail Facility Unknown if ever smoked [employer] Other Start: 11-20-2023 [facility] status [facility] [place] Sex Assigned At Male [facility] Start: 12-06-2023 Tobacco smoking stat [place] Smoker (finding) [facility] Start: 1955 Sex Assigned At Male F [facility] Functional Status Date Assessment Result Facility 11-20-2023 Functional Status N/A [facility] [place] Clinical Note 11-20-2023 Note Date & Type [...] day(s), # 5 tab(s), Refills(s) 0, Pharmacy: boarding pass #72, 175.2, cm, 11/20/23 13:23:00 EDT, Height/Length [...] TPV60 SARS-CoV-2 (COVID-19) mRNA-1273 vaccine 06/08/2020 Recorded [facility] Comment on above: Result Comment: Elec tronically Signed By: ASHWIN HENDERSON, Roel Mcclure\Date and Time Signed: 11/20/23 14:34 EDT Evaluation + Plan note Note Date & Type Note Facility Evaluation + Plan note No data available for this section [facility] Evaluation note Note Date & Type Note Facility Evaluation note [facility] [employer] Other Evaluation note Note Date & Type Note Facility Evaluation note No assessment information availa [facility] Work Phone: History general Narrative - Reported Note Date & Type Note Facility History general Narrative - Reported [facility] [employer] Other Hospital Discharge instructions Note Date & Type Note Facility Hospital Discharge instructions No data available for this section [facility] Progress note Note Date & Type Note Facility Progress note No data available for this section [facility] [place] Summary Purpose Family History Relationship Condition Age at Onset Recorded Date/T mirlande mother Alzheimer's dementia Unknown Unknown Advance Directives Advance Directive Response Recorded Date/ Time Advance Directives No August 03, 2017 3:38pm Additional Source Comments (unrecognized sect ion and content) No Status Records FoundNo Status Records FoundNo Status Records Found INFORMATION SOURCE (unrecogn ized section and content) DATE CREATED AUTHOR 11/25/2021 [facility] DATE CREATED AUTHOR AUTHOR'S ORGANIZ ATION 12/13/2023 [facility] DATE CREATED AUTHOR AUTHOR'S ORGANIZ ATION 12/22/2023 [facility] Patient Care team informatio n (unrecognized section and content) Personnel Name: Jose Oneal MD Address: Address: [address] [place], [place] [id number] Team Status: Inactive Member Role Status Dates Roel Christopher MD [facility] Attending Provider Active Start: December 05, 2023 [...] BE BASED ON THE PRIMARY CLINICAL RECORDS. [facility] [employer] [facility]. provides no warranty or guarantee of the accuracy or completeness of information in this document.
[2025-01-07 10:01] LABS: Alanine Aminotransferase 21 U/L (16-63); Albumin Globulin Ratio 1.1; Albumin Level 3.6 g/dL (3.4-5.0); Alkaline Phosphatase 75 U/L (46-116); Anion Gap 12.1; Aspartate Amino Transferase 16 U/L (15-37); Blood Urea Nitrogen 18.0 mg/dL (7.0-18.0); Calcium 9.1 mg/dL (8.5-10.1); Carbon Dioxide 28.4 mmol/L (21.0-32.0); Chloride 106 mmol/L (98-107); Cholesterol 172 mg/dL (<=200); Estimated GFR (African America >60 (>=60 mL/min/1.73m^2); Estimated GFR (Non-African Ame >60 (>=60 mL/min/1.73m^2); Free T3 2.69 pg/mL (2.18-3.98); Globulin 3.4 g/dL; Glucose 139 mg/dL (74-106); HDL Cholesterol 52 mg/dL (40-60); Potassium 4.5 mmol/L (3.5-5.1); Sodium 142 mmol/L (136-145); Thyroid Stimulating Hormone 1.321 uIU/mL (0.358-3.740); Total Protein 7.0 g/dL (6.4-8.2); Triglycerides 104 mg/dL (<=150); VLDL CHOLESTEROL 20.8 mg/dL
[2025-01-07 10:07] LABS: Hematocrit 42.8 % (42.0-54.0); Hemoglobin 14.7 g/dL (14.0-18.0); Mean Corpuscular HGB Conc 34.3 g/dL (29.9-35.2); Mean Corpuscular Hemoglobin 29.8 pg (25.9-34.0); Mean Corpuscular Volume 86.6 fL (80.0-94.0); Platelet Count 209 10^3/uL (150-450); Red Blood Count 4.94 10^6/uL (4.70-6.10); White Blood Count 6.0 10^3/uL (4.0-11.0)
[2025-01-07 10:44] LABS: Basophils Abs Manual 0.00 10^3/uL (0.00-0.10); Basophils Percent Manual 0.0 % (0.2-2.0); Eosinophils Absolute Manual 0.36 10^3/uL (0.00-0.70); Eosinophils Percent Manual 6.0 % (0.9-7.0); Lymphocytes Absolute Manual 0.96 10^3/uL (1.20-3.80); Lymphocytes Percent Manual 16.0 % (20.5-60.0); Monocytes Absolute Manual 0.36 10^3/uL (0.30-0.80); Monocytes Percent Manual 6.0 % (1.7-12.0); Segmented Neut Absolute Manual 4.32 10^3/uL (1.4-6.5); Segmented Neutrophils % Manual 72.0 (43.0-75.0)
== END 2025-01-07 08:31 | disposition home or self-care (01) ==
LOC: LAB 08:35
PROVIDERS: PCP Family Medicine; Visit Provider Family Medicine
DX: E78.5 Hyperlipidemia, unspecified (principal); I10 Essential (primary) hypertension; K21.9 Gastro-esophageal reflux disease without esophagitis; E11.9 Type 2 diabetes mellitus without complications; E03.9 Hypothyroidism, unspecified; Z12.5 Encounter for screening for malignant neoplasm of prostate; D50.9 Iron deficiency anemia, unspecified
CPT/HCPCS: 36415; 80053; 80061; 83036; 84436; 84443; 84481; 85007; 85027; G0103